=== PATIENT | male | born 1960 | race Two or more races ===

== ENCOUNTER 2024-08-05 10:55 | Inpatient (IN) | payer MEDICAID, SELFPAY ==
[2024-08-05] VITALS (12 sets, daily range): BP systolic 121–205; BP diastolic 66–96; PULSE 67–85; RESP 10–18; TEMP 36.9; O2SAT 95–100; BMI 39.0
--- NOTE | 2024-08-05 11:12 | EKG_ITS ---
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
--- NOTE | 2024-08-05 11:12 | XR_ITS ---
Examination: CT brain head without contrast. 2-D sagittal coronal reconstructions Date and time of exam:August 25, 2024 1137 hours INDICATIONS: Altered mental status onset slurred speech beginning 3 days ago CTDI: vol (mGy):52 DLP: (mGycm):1060 Technique: Multiple CT axial sections of the brain have been obtained, 5 mm slice thickness. Contrast has not been administered. 2-D sagittal, coronal reconstructions have been obtained Low dose protocols were performed. One or more of the following dose reduction techniques were used; automated exposure control, adjustment of the mA and/or KV according to patient size, use of iterative reconstruction technique. Findings: No significant ventricular enlargement. Subacute appearing versus old infarct in the left basal ganglia Intra-axial or extra-axial hemorrhage density is not seen. No mass effect or midline shift Basal cisterns are not remarkable. Fourth ventricle is midline. Cranial vault intact. Impression: Negative for acute hemorrhage, mass effect or midline shift Nonhemorrhagic subacute versus old infarct in the left basal ganglia, clinical correlation advised, consider brain MRI follow-up stroke protocol
--- NOTE | 2024-08-05 11:12 | XR_ITS ---
Examination: AP chest single view TECHNIQUE: Supine AP portable chest single view Exam date and time: August 05, 2024 1128 hours INDICATIONS: Onset shortness of breath today FINDINGS: No significant cardiac enlargement No pneumonia or pulmonary edema The osseous structures are intact IMPRESSION: No active disease
[2024-08-05 11:34] LABS: Lactate (Lactic Acid) 1.8 mMol/L (0.4-2.0)
[2024-08-05 11:37] LABS: Basophils % (Auto) 0 % (0-2.5); Eosinophils # (Auto) 0.1 Thou/mm3 (0.0-0.5); Eosinophils % (Auto) 0 % (0-10); Hematocrit 34.1 % (41.0-53.0); Immature Granulocytes % (Auto) 1 % (0-0); Immature Granulocytes Auto 0.07 Thou/mm3 (0.00-0.00); Lymphocytes # (Auto) 1.4 Thou/mm3 (1.0-4.8); Lymphocytes % (Auto) 11 % (10-50); Mean Corpuscular HGB Conc 35.2 g/dl (31.0-37.0); Mean Corpuscular Hemoglobin 30.5 pg (25.0-35.0); Mean Corpuscular Volume 87 fL (80-100); Monocytes # (Auto) 0.6 Thou/mm3 (0.0-0.8); Monocytes % (Auto) 5 % (0-12); Neutrophils # (Auto) 10.3 Thou/mm3 (1.8-7.7); Neutrophils % (Auto) 83 % (37-80); Nucleated Red Blood Cell % 0 /100 WBC (0); Platelet Count 263 Thou/mm3 (140-440); RDW Standard Deviation 36.5 fL (35.1-43.9); Red Blood Count 3.94 Miln/mm3 (4.50-5.90); White Blood Count 12.4 Thou/mm3 (3.8-10.6)
[2024-08-05 11:57] LABS: Ammonia < 10 uMol/L (11-32)
[2024-08-05 12:05] LABS: Alanine Aminotransferase 8 U/L (10-49); Albumin, Serum 3.6 gm/dL (3.4-4.8); Albumin/Globulin Ratio 1.4 (1.2-2.2); Alkaline Phosphatase 59 U/L (46-116); Anion Gap 10 (7-16); Aspartate Amino Transferase 15 U/L (0-34); BUN/Creatinine Ratio 13 Ratio (12-20); Bilirubin,Total 0.6 mg/dL (0.3-1.2); Blood Urea Nitrogen 45 mg/dL (9-23); Calcium 8.5 mg/dL (8.3-10.6); Calcium (Corrected) 8.8 mg/dL (8.5-10.1); Carbon Dioxide 24.3 mMol/L (20.0-31.0); Chloride 104 mMol/L (98-107); Creatinine (Component) 3.4 mg/dL (0.6-1.3); Estimated Creatinine Clearance 25.9 mL/min (>60); Globulin 2.5 gm/dL (2.3-3.5); Glucose 192 mg/dL (74-106); Osmolality,Calculated 292 (275-295); Potassium 4.4 mMol/L (3.4-5.1); Procalcitonin 0.14 ng/ml (0.0-0.49); Sodium 138 mMol/L (136-145); Total Protein 6.1 gm/dL (5.7-8.2); Troponin I 0.042 ng/mL (0.0-0.045); eGFR 19 See Note
--- NOTE | 2024-08-05 14:56 | EDNOTE_ITS ---
Altered Mental Status RME/HPI General Chief Complaint: Altered Mental Status Stated Complaint: ALTERED AND BLOOD IN URINE Time Seen by Provider: 08/05/24 12:13 Arrival date/time: 08/05/24 10:55 RME / HPI RME / HPI narrative: 63 year old male presents to the ED brought in by family for evaluation of altered mental status. Family report the patient lives with a roommate in [place] and were called several days ago stating the patient was not wanting to eat and spending the majority of the day in bed. State they went to pick him up 2 days ago and have noticed he is not acting his usual self. Family report the patient is disoriented and speech is slurred. Additionally report patients urine appears very dark orange/red. While in the ED patient has no complaints. He denies any fevers, chills, sweats, headache, chest pain, cough, shortness of breath, abdominal pain, nausea, vomiting, diarrhea, constipation, dysuria, urinary frequency, or blood in urine. Related Data Allergies Allergy/AdvReac Type Severity Reaction Status Date / Time No Known Allergies Allergy Verified 08/05/24 10:58 Review of Systems Review of Systems Narrative Review of Systems: Gen: No fever, no chills, no weight loss EYES: No discharge, no visual changes, no pain HEENT: No ear pain, no congestion, no sore throat PULM: no shortness of breath, no cough, no congestion CV: No chest pain, no dyspnea on exertion, no palpitations, no chest tightness GI: No nausea, no vomiting, no diarrhea, no pain, no constipation : No frequency, no urgency,? no dysuria, +per family blood in urine Musc/skel: No joint pain, no back pain Skin: No rash, no ecchymosis, no lesions Neuro: No weakness, no headache, +per family patient is disoriented with change in speech Past Medical History Social History SMOKING STATUS: Never smoker ED Exam Narrative Physical exam: GENERAL APPEARANCE: AxOx4, no obvious distress, nontoxic appearing HEENT: NC, AT. MMM. EOMI, clear conjunctiva, oropharynx clear. NECK: Supple without lymphadenopathy. No stiffness or restricted ROM. HEART: Normal rate and regular rhythm, normal S1/S1, no m/r/g LUNGS: CTAB, moving air well. No crackles or wheezes are heard. ABDOMEN: Soft, mild upper quadrant tenderness, he had a marked paroxysm of hiccups after the palpation lasting approximately 10 minutes and resolving spontaneously, nondistended with good bowel sounds heard. BACK: No midline C/T/L spine pain or deformity, No CVAT, no obvious deformity. EXTREMITIES: Without cyanosis, clubbing or edema. MUSCULOSKELETAL: FROM of all major joints, no chest tenderness NEUROLOGICAL: Grossly nonfocal. Alert and oriented, moving all 4 extremities. CN not formally tested but appear grossly intact. Skin: Warm and dry without any rash. Course Quality Measures none Orders Category Date Time Status Bedside COVID-19 Antigen Test NOW Care 08/05/24 11:12 Active Bedside Influenza A&B Antigen Test NOW Care 08/05/24 11:[address] Screening NOW Care 08/05/24 15:53 Completed Sorting Supervisor NOW Care 08/05/24 11:12 Active EKG (ED ONLY) *Do not use* NOW Care 08/05/24 11:12 Completed Insert IV NOW Care 08/05/24 11:[address] chest abdomen pelvis wo Stat Exams 08/05/24 15:[address] head/brain wo con Stat Exams 08/05/24 11:12 Completed EKG (ED Only) Stat Exams 08/05/24 11:12 Draft XR chest 1V portable Stat Exams 08/05/24 11:12 Completed Ammonia Stat Lab 08/05/24 11:21 Completed Blood Culture (Lab) Stat Lab 08/05/24 11:26 Received CBC Stat Lab 08/05/24 11:21 Completed Comprehensive Metabolic Panel Stat Lab 08/05/24 11:21 Completed Lactate (Lactic Acid) Stat Lab 08/05/24 11:21 Completed Procalcitonin Stat Lab 08/05/24 11:21 Completed Troponin I Stat Lab 08/05/24 11:21 Completed Urinalysis Stat Lab 08/05/24 15:15 Completed Urine Culture Stat Lab 08/05/24 15:15 Received Vital Signs Vital signs: Vital Signs Temperature 98.4 F 08/05/24 11:02 Pulse Rate 85 08/05/24 11:02 Respiratory Rate 18 08/05/24 11:02 Blood Pressure 121/66 08/05/24 11:02 Pulse Oximetry (%) 99 08/05/24 11:02 Oxygen Delivery Method Room Air 02/04/25 11:02 Pulse ox is 99% on room air which is adequate. Altered Mental Status MDM Narrative MDM Narrative:: 63-year-old male who has none specific altered mental status of unknown duration. He normally lives in [place] where roommate had contacted family members here in [place] about abnormal motor behavior. They brought him up here noticing that he has been weak, confused, and unable to answer questions fully. He was last visiting his family here in [place] around the holiday season where he was active, walking independently, and conversing normally. The only 2 symptoms noted by the family members are recurrent hiccups since they brought him back from [place] and may be some blood in the urine . There does not appear to be any generalized infectious symptoms. Patient does not have any focal complaints however I believe this is part of the confusion that is of concern. As a result further diagnostics were sent including basic labs, head CT, and viral panels which all returned within normal limits except for a mild leukocytosis at 12,000. Chest x-ray on my interpretation shows no acute cardiopulmonary process, no cardiomegaly, no bony abnormalities, I reviewed the radiology interpretation and agree. As patient does have some mild upper abdominal tenderness we do not not have a very clear sense as to why he would be altered, a leukocytosis of 12,000 is nonspecific, however CT of the chest abdomen pelvis has been sent to assess for any upper abdominal pathology that could be related to his physical exam and recurrent hiccups. Case was signed out to the oncoming provider pending CT results and final disposition. Ronit Galeas, am scribing for and in the presence of Dr. Uriostegui. Patient data External records reviewed:: [facility] previous records (Per EMR, no previous visits for review) Clinical information provided by:: patient Social determinants that could affect healthcare access:: none Patient has the following chronic illnesses:: Hypertension, diabetes How is presenting disease/condition affected by chronic disease/condition?: exa cerbated by Evaluation data The following diagnostics were reviewed and interpreted by me:: lab results, radiology exam(s) and EKG tracing(s) (Sinsu rhythm, rate 71, normal axis, normal intervals, no acute ST or T-wave changes, no STEMI ) Lab and/or radiology exams considered but not ordered:: None Interpretation Summary: Ordering Physician: Loida MORA)Jadiel NP Date of Service: 08/05/24 Procedure(s): XR chest 1V portable Accession Number(s): [id number] cc: Loida MORA),Jadiel FORD; Minesh Cabral MD~ Examination: AP chest single view TECHNIQUE: Supine AP portable chest single view Exam date and time: August 05, 2024 1128 hours INDICATIONS: Onset shortness of breath today FINDINGS: No significant cardiac enlargement No pneumonia or pulmonary edema The osseous structures are intact IMPRESSION: No active disease Dictated By:Minesh Cabral MD Signed By:<Electronically signed by Minesh Cabral MD in OV>08/05/24 1203 Ordering Physician: Jadiel Mariscal NP, NP Date of Service: 08/05/24 Procedure(s): CT head/brain wo con Accession Number(s): [id number] cc: Loida MORA)Jadiel NP; Minesh Cabral MD~ Examination: CT brain head without contrast. 2-D sagittal coronal reconstructions Date and time of exam:August 25, 2024 1137 hours INDICATIONS: Altered mental status onset slurred speech beginning 3 days ago CTDI: vol (mGy):52 DLP: (mGycm):1060 Technique: Multiple CT axial sections of the brain have been obtained, 5 mm slice thickness. Contrast has not been administered. 2-D sagittal, coronal reconstructions have been obtained Low dose protocols were performed. One or more of the following dose reduction techniques were used; automated exposure control, adjustment of the mA and/or KV according to patient size, use of iterative reconstruction technique. Findings: No significant ventricular enlargement. Subacute appearing versus old infarct in the left basal ganglia Intra-axial or extra-axial hemorrhage density is not seen. No mass effect or midline shift Basal cisterns are not remarkable. Fourth ventricle is midline. Cranial vault intact. Impression: Negative for acute hemorrhage, mass effect or midline shift Nonhemorrhagic subacute versus old infarct in the left basal ganglia, clinical correlation advised, consider brain MRI follow-up stroke protocol Dictated By:Minesh Cabral MD Signed By:<Electronically signed by Minesh Cabral MD in OV>08/05/24 1202 Medications / Prescriptions Medications or Prescriptions considered but not ordered:: None Medication administrations:: Workup pending Consultations Consultation(s) initiated? (list below): No Diagnosis Differential diagnosis altered mental status: alcoholic intoxication, altered mental status, dementia, hypoglycemia, hyponatremia, subarachnoid hemorrhage and sepsis Most likely diagnosis given after review of the tests above:: Workup pending Admission Indicated Admission indicated?: not indicated (Workup pending) Admission Request Was there a request for admission?: No Disposition Plan Disposition Plan: other (specify) (Signed out to oncoming provider pending CT results and final disposition) Discharge Plan Prescriptions/Referrals Referrals: No Primary/Family,Physician [Primary Care Provider] - In 1 week Problem List Clinical Impression: Altered mental status, Leukocytosis Patient/Caregiver Discharge Instructions Print Language: Ivorian
[2024-08-05 15:19] LABS: Collection Type, Urine Clean Catch
[2024-08-05 15:27] LABS: Bacteria,Urine Rare; Bilirubin,Urine Negative (Negative); Blood,Urine 1+ (Negative); Clarity,Urine Clear (Clear/Hazy); Color,Urine Lt-Yellow (Lt Yel-Yel); Glucose, Urine 3+ (Negative); Hyaline Casts,Urine < 1 /hpf (0-1); Ketones,Urine Negative (Negative); Leukocyte Esterase,Urine Negative (Negative); Nitrite,Urine Negative (Negative); Protein,Urine 3+ (Neg - Trace); RBC,Urine 1 /hpf (0-3); Specific Gravity,Urine 1.013 (1.001-1.035); Squamous Epithelial Cell,Urine < 1 /hpf (0-5); Urobilinogen,Urine Negative mg/dL (0.0-1.0); WBC,Urine 1 /hpf (0-5)
--- NOTE | 2024-08-05 15:55 | XR_ITS ---
Examination: CT chest, without intravenous contrast. CT abdomen, without intravenous contrast. CT pelvis, without intravenous contrast. 2-D sagittal and coronal reconstructions. 3-D reconstructions. Date and time of exam:August 05, 2024 1620 hours INDICATIONS: Upper abdominal pain left upper abdominal pain today CTDI vol (mgy) 7.56 DLP (MGycm)603 Technique: Multiple CT images, 3.0 mm slice thickness, obtained chest, abdomen, pelvis, with the high-resolution 64 slice scanner.. Sagittal and coronal 2-D reconstructions are obtained. 3-D reconstructions Low dose protocols were performed. One or more of the following dose reduction techniques were used; automated exposure control, adjustment of the mA and/or KV according to patient size, use of iterative reconstruction technique. Findings: No thoracic aortic aneurysmal dilatation Pulmonary artery segments are not enlarged Heavy calcification left anterior descending coronary artery. No paratracheal tracheobronchial or bronchopulmonary adenopathy No pneumonia pulmonary edema or pleural disease No visualized liver or splenic lesion Cholelithiasis Pancreatic calcifications No adrenal mass Perinephric stranding 1 to 2 mm right renal calculi No hydronephrosis or ureteral calculi Aorta normal size Normal appendix No bowel obstruction Colonic diverticulosis, no diverticulitis Transverse prostate dimension 5.2 cm Urinary bladder wall thickening up to 5 mm Fat-containing left inguinal hernia Moderate osteopenia IMPRESSION: Heavy calcification left anterior descending coronary artery No pneumonia, pulmonary edema or pleural disease. Cholelithiasis, tiny gallstones, recommend hepatobiliary sonography follow-up Multiple pancreatic calcifications consistent with prior episodes of acute pancreatitis Nonobstructing right renal calculi Perinephric stranding, consider urinary tract infection Normal appendix No diverticulitis Moderate prostatomegaly Urinary bladder wall thickening up to 5 mm, consider cystitis
--- NOTE | 2024-08-05 18:46 | EDNOTE_ITS ---
Emergency Room Addendum <Fausto Zaragoza - Last Filed: 08/05/24 21:57> Addendum Narrative: 1800: Care assumed from Dr. Uriostegui, the previous shift emergency physician. Past medical, surgical, social and family history reviewed. Vitals and home medications reviewed. I will assume the care of the patient at this time, pending CT results and final disposition. Please refer to the emergency department record for initial H&P and ED course. Patient is awake and in no acute distress. He is not having a headache at this time. Physical exam by me shows patient under no acute distress at this time. Vitals: Reviewed and he is slightly hypertensive at 201 systolic. Lungs; clear Neuro: Moving all extremities. 2138 Teleneurology is present at the bedside for consultation. Please consultation below and recommendations. Tele Neuro Consultation Consultation Date: 08/05/24 Stat Consult Diagnosis:?I63.89 - Cerebrovascular accident (CVA) due to other mechanism ([facility]) Impression: Acute Confusion with Possible Stroke: #Admission and Initial Workup: Admit patient for comprehensive evaluation due to acute confusion and slurred speech observed since Sunday, alongside CT head findings suggestive of a recent or older cerebrovascular event. Proceed with MRI of the brain following stroke protocol and MRA of the head and neck without contrast to assess cerebrovascular status. Conduct laboratory tests including CBC, CMP, UA, TSH, LDL, and A1C to evaluate for potential contributing factors. #Management and Monitoring: Initiate aspirin therapy with a loading dose of 325mg, transitioning to 81mg daily for secondary stroke prevention. Continue current statin therapy as part of secondary stroke prevention strategy. Schedule a 2D echocardiogram to investigate cardiac sources of embolism. Refer for PT/OT/NURSE SPECIAL evaluation to assess rehabilitation potential and needs. #Supportive Care: Ensure maintenance of normal blood pressure, euglycemia, and euthermia to support optimal neurological recovery and prevent further injury. #Clinical Observations: Neurological examination revealed intact speech, orientation, facial symmetry, and limb strength, with no evidence of weakness or facial asymmetry, indicating preserved neurological functions despite acute presentation. The patient's medical history of hypertension, hyperlipidemia, and diabetes is noted, contributing to the suspicion of an acute cerebrovascular event Advanced Imaging: Advanced Imaging Deferred because: Does not meet criteria due to being out of the 24-hour window for thrombectomy Radiology Data I personally reviewed the radiology data and agree with the radiologist's interpretation. CT chest, without intravenous contrast. CT abdomen, without intravenous contrast. CT pelvis, without intravenous contrast. Date and time of exam:August 05, 2024 1620 hours INDICATIONS: Upper abdominal pain left upper abdominal pain today Findings: No thoracic aortic aneurysmal dilatation Pulmonary artery segments are not enlarged Heavy calcification left anterior descending coronary artery. No paratracheal tracheobronchial or bronchopulmonary adenopathy No pneumonia pulmonary edema or pleural disease No visualized liver or splenic lesion Cholelithiasis Pancreatic calcifications No adrenal mass Perinephric stranding 1 to 2 mm right renal calculi No hydronephrosis or ureteral calculi Aorta normal size Normal appendix No bowel obstruction Colonic diverticulosis, no diverticulitis Transverse prostate dimension 5.2 cm Urinary bladder wall thickening up to 5 mm Fat-containing left inguinal hernia Moderate osteopenia IMPRESSION: Heavy calcification left anterior descending coronary artery No pneumonia, pulmonary edema or pleural disease. Cholelithiasis, tiny gallstones, recommend hepatobiliary sonography follow-up Multiple pancreatic calcifications consistent with prior episodes of acute pancreatitis Nonobstructing right renal calculi Perinephric stranding, consider urinary tract infection Normal appendix No diverticulitis Moderate prostatomegaly Urinary bladder wall thickening up to 5 mm, consider cystitis Dictated By: Minesh Cabral MD <Erin Mcneil MD - Last Filed: 08/06/24 00:04> Addendum Narrative: 1800: Care assumed from Dr. Uriostegui, the previous shift emergency physician. Past medical, surgical, social and family history reviewed. Vitals and home medications reviewed. I will assume the care of the patient at this time, pending CT results and final disposition. Please refer to the emergency department record for initial H&P and ED course. Patient is awake and in no acute distress. He is not having a headache at this time. Physical exam by me shows patient under no acute distress at this time. Vitals: Reviewed and he is slightly hypertensive at 201 systolic. Lungs; clear Neuro: Moving all extremities. 2138: Teleneurology is present at the bedside for consultation. Please consultation below and recommendations. 6: Discussed case with [the resident physician, attending Dr. Ortiz] from Hospitalist service regarding admission. Discussed patients ED course, exam findings, labs, and radiology results. The Hospitalist [agrees] to accept the patient for admission. Tele Neuro Consultation Consultation Date: 08/05/24 Stat Consult Diagnosis:?I63.89 - Cerebrovascular accident (CVA) due to other mechanism ([facility]) Impression: Acute Confusion with Possible Stroke: #Admission and Initial Workup: Admit patient for comprehensive evaluation due to acute confusion and slurred speech observed since Sunday, alongside CT head findings suggestive of a recent or older cerebrovascular event. Proceed with MRI of the brain following stroke protocol and MRA of the head and neck without contrast to assess cerebrovascular status. Conduct laboratory tests including CBC, CMP, UA, TSH, LDL, and A1C to evaluate for potential contributing factors. #Management and Monitoring: Initiate aspirin therapy with a loading dose of 325mg, transitioning to 81mg daily for secondary stroke prevention. Continue current statin therapy as part of secondary stroke prevention strategy. Schedule a 2D echocardiogram to investigate cardiac sources of embolism. Refer for PT/OT/NURSE SPECIAL evaluation to assess rehabilitation potential and needs. #Supportive Care: Ensure maintenance of normal blood pressure, euglycemia, and euthermia to support optimal neurological recovery and prevent further injury. #Clinical Observations: Neurological examination revealed intact speech, orientation, facial symmetry, and limb strength, with no evidence of weakness or facial asymmetry, indicating preserved neurological functions despite acute presentation. The patient's medical history of hypertension, hyperlipidemia, and diabetes is noted, contributing to the suspicion of an acute cerebrovascular event Advanced Imaging: Advanced Imaging Deferred because: Does not meet criteria due to being out of the 24-hour window for thrombectomy Radiology Data I personally reviewed the radiology data and agree with the radiologist's interpretation. CT chest, without intravenous contrast. CT abdomen, without intravenous contrast. CT pelvis, without intravenous contrast. Date and time of exam:August 05, 2024 1620 hours INDICATIONS: Upper abdominal pain left upper abdominal pain today Findings: No thoracic aortic aneurysmal dilatation Pulmonary artery segments are not enlarged Heavy calcification left anterior descending coronary artery. No paratracheal tracheobronchial or bronchopulmonary adenopathy No pneumonia pulmonary edema or pleural disease No visualized liver or splenic lesion Cholelithiasis Pancreatic calcifications No adrenal mass Perinephric stranding 1 to 2 mm right renal calculi No hydronephrosis or ureteral calculi Aorta normal size Normal appendix No bowel obstruction Colonic diverticulosis, no diverticulitis Transverse prostate dimension 5.2 cm Urinary bladder wall thickening up to 5 mm Fat-containing left inguinal hernia Moderate osteopenia IMPRESSION: Heavy calcification left anterior descending coronary artery No pneumonia, pulmonary edema or pleural disease. Cholelithiasis, tiny gallstones, recommend hepatobiliary sonography follow-up Multiple pancreatic calcifications consistent with prior episodes of acute pancreatitis Nonobstructing right renal calculi Perinephric stranding, consider urinary tract infection Normal appendix No diverticulitis Moderate prostatomegaly Urinary bladder wall thickening up to 5 mm, consider cystitis Dictated By: Minesh Cabral MD Critical Care Time: 40 minutes The high probability of sudden, clinically significant deterioration in the patient?s condition required the highest level of my preparedness to intervene urgently. The services I provided to this patient were to treat and/or prevent clinically significant deterioration. Services included the following: chart data review, reviewing nursing notes and/or old charts, documentation time, oracle ebs consultant collaboration regarding findings and treatment options, medication orders and management, direct patient care, vital sign assessments and ordering, interpreting and reviewing diagnostic studies and lab tests. Aggregate critical care time includes only time during which I was engaged in work directly related to the patient?s care, as described above, whether at bedside or elsewhere in the Emergency Department. It did not include time spent performing other reported procedures or the services of residents, students, nurses or physician assistants. <Luann Porter - Last Filed: 08/06/24 00:01> Addendum Narrative: 1800: Care assumed from Dr. Uriostegui, the previous shift emergency physician. Past medical, surgical, social and family history reviewed. Vitals and home medications reviewed. I will assume the care of the patient at this time, pending CT results and final disposition. Please refer to the emergency department record for initial H&P and ED course. Patient is awake and in no acute distress. He is not having a headache at this time. Physical exam by me shows patient under no acute distress at this time. Vitals: Reviewed and he is slightly hypertensive at 201 systolic. Lungs; clear Neuro: Moving all extremities. 2138: Teleneurology is present at the bedside for consultation. Please consultation below and recommendations. 2355: Discussed case with [the resident physician, attending Dr. Ortiz] from Hospitalist service regarding admission. Discussed patients ED course, exam findings, labs, and radiology results. The Hospitalist [agrees] to accept the patient for admission. Tele Neuro Consultation Consultation Date: 08/05/24 Stat Consult Diagnosis:?I63.89 - Cerebrovascular accident (CVA) due to other mechanism ([facility]) Impression: Acute Confusion with Possible Stroke: #Admission and Initial Workup: Admit patient for comprehensive evaluation due to acute confusion and slurred speech observed since Sunday, alongside CT head findings suggestive of a recent or older cerebrovascular event. Proceed with MRI of the brain following stroke protocol and MRA of the head and neck without contrast to assess cerebrovascular status. Conduct laboratory tests including CBC, CMP, UA, TSH, LDL, and A1C to evaluate for potential contributing factors. #Management and Monitoring: Initiate aspirin therapy with a loading dose of 325mg, transitioning to 81mg daily for secondary stroke prevention. Continue current statin therapy as part of secondary stroke prevention strategy. Schedule a 2D echocardiogram to investigate cardiac sources of embolism. Refer for PT/OT/NURSE SPECIAL evaluation to assess rehabilitation potential and needs. #Supportive Care: Ensure maintenance of normal blood pressure, euglycemia, and euthermia to support optimal neurological recovery and prevent further injury. #Clinical Observations: Neurological examination revealed intact speech, orientation, facial symmetry, and limb strength, with no evidence of weakness or facial asymmetry, indicating preserved neurological functions despite acute presentation. The patient's medical history of hypertension, hyperlipidemia, and diabetes is noted, contributing to the suspicion of an acute cerebrovascular event Advanced Imaging: Advanced Imaging Deferred because: Does not meet criteria due to being out of the 24-hour window for thrombectomy Radiology Data I personally reviewed the radiology data and agree with the radiologist's interpretation. CT chest, without intravenous contrast. CT abdomen, without intravenous contrast. CT pelvis, without intravenous contrast. Date and time of exam:August 05, 2024 1620 hours INDICATIONS: Upper abdominal pain left upper abdominal pain today Findings: No thoracic aortic aneurysmal dilatation Pulmonary artery segments are not enlarged Heavy calcification left anterior descending coronary artery. No paratracheal tracheobronchial or bronchopulmonary adenopathy No pneumonia pulmonary edema or pleural disease No visualized liver or splenic lesion Cholelithiasis Pancreatic calcifications No adrenal mass Perinephric stranding 1 to 2 mm right renal calculi No hydronephrosis or ureteral calculi Aorta normal size Normal appendix No bowel obstruction Colonic diverticulosis, no diverticulitis Transverse prostate dimension 5.2 cm Urinary bladder wall thickening up to 5 mm Fat-containing left inguinal hernia Moderate osteopenia IMPRESSION: Heavy calcification left anterior descending coronary artery No pneumonia, pulmonary edema or pleural disease. Cholelithiasis, tiny gallstones, recommend hepatobiliary sonography follow-up Multiple pancreatic calcifications consistent with prior episodes of acute pancreatitis Nonobstructing right renal calculi Perinephric stranding, consider urinary tract infection Normal appendix No diverticulitis Moderate prostatomegaly Urinary bladder wall thickening up to 5 mm, consider cystitis Dictated By: Minesh Cabral MD Critical Care Time: 40 minutes The high probability of sudden, clinically significant deterioration in the patient?s condition required the highest level of my preparedness to intervene urgently. The services I provided to this patient were to treat and/or prevent clinically significant deterioration. Services included the following: chart data review, reviewing nursing notes and/or old charts, documentation time, oracle ebs consultant collaboration regarding findings and treatment options, medication orders and management, direct patient care, vital sign assessments and ordering, interpreting and reviewing diagnostic studies and lab tests. Aggregate critical care time includes only time during which I was engaged in work directly related to the patient?s care, as described above, whether at bedside or elsewhere in the Emergency Department. It did not include time spent performing other reported procedures or the services of residents, students, nurses or physician assistants. Attestation <Fausto Zaragoza - Last Filed: 08/05/24 21:57> Attestation Scribe Attestation: I, Nilsa Zaragoza, am scribing for and in the presence of Dr. Mcneil. Provider Notation: Although this document has been carefully reviewed, there may still be some phonetic and other typographical errors. These errors are purely grammatical due to imperfections in the software program and should not be construed in any way to compromise the substance of the patient's medical care during this visit.
--- NOTE | 2024-08-05 18:53 | XR_ITS ---
Examination: Abdomen sonogram, Limited Date and time of exam: August 05, 2024 at 2044 hours INDICATIONS: Right upper abdominal pain left upper abdominal pain today Technique: Real-time wood scale transabdominal sonographic images of the upper abdomen obtained. Findings: Possible gallbladder sludge ball No definite gallstones Gallbladder wall 0.4 cm no edema Common bile duct 0.5 cm Pancreatic head 2.5 cm Liver 13.5 cm no focal liver lesions Normal hepatopedal portal venous flow Patent IVC IMPRESSION: Suspicious for gallbladder sludge ball Negative for cholelithiasis, negative for cholecystitis
[2024-08-05] MEDS: hydrALAZINE INJ 20 MG/ML VIAL IV (19:11)
--- NOTE | 2024-08-05 19:17 | PC.NURSE ---
TELE NEURO CASE # [id number]
--- NOTE | 2024-08-05 19:58 | PC.NURSE ---
Pt awake, A&O x 3, PERRL, BERNSTEIN well, bilat hand resident assistant cna equal and strong. Speech slightly slurred but better then when he first came in per Yeny (niece) at bedside.
--- NOTE | 2024-08-05 21:30 | PC.NURSE ---
Tele nerologist Dr. Sebastien Hobson spoke and assessed pt, translated by Yeny tse) at bedside.
--- NOTE | 2024-08-05 21:50 | ESCONSULT_ITS ---
Tele Neuro Consultation Consultation Date 08/05/24 Most Recent Vital Signs Last Vital Signs Temp 98.5 F 08/05/24 19:29 Pulse 78 08/05/24 21:22 Resp 18 08/05/24 21:22 BP 156/70 H 08/05/24 21:22 Pulse Ox 100 08/05/24 21:22 O2 Del Method Room Air 08/05/24 21:22 Consultation Narrative [facility] TeleNeurology Consult Services Stat Consult Patient Name:???Adam Reddy Date of :???1960 Identification Number:??? Date of Service:???08/05/2024 19:16:37 Diagnosis:?I63.89 - Cerebrovascular accident (CVA) due to other mechanism ([facility]) Impression Acute Confusion with Possible Stroke: Admission and Initial Workup: Admit patient for comprehensive evaluation due to acute confusion and slurred speech observed since Sunday, alongside CT head findings suggestive of a recent or older cerebrovascular event. Proceed with MRI of the brain following stroke protocol and MRA of the head and neck without contrast to assess cerebrovascular status. Conduct laboratory tests including CBC, CMP, UA, TSH, LDL, and A1C to evaluate for potential contributing factors. Management and Monitoring: Initiate aspirin therapy with a loading dose of 325mg, transitioning to 81mg daily for secondary stroke prevention. Continue current statin therapy as part of secondary stroke prevention strategy. Schedule a 2D echocardiogram to investigate cardiac sources of embolism. Refer for PT/OT/SEMICONDUCTOR BONDER evaluation to assess rehabilitation potential and needs. Supportive Care: Ensure maintenance of normal blood pressure, euglycemia, and euthermia to support optimal neurological recovery and prevent further injury. Clinical Observations: Neurological examination revealed intact speech, orientation, facial symmetry, and limb strength, with no evidence of weakness or facial asymmetry, indicating preserved neurological functions despite acute presentation. The patient's medical history of hypertension, hyperlipidemia, and diabetes is noted, contributing to the suspicion of an acute cerebrovascular event. Recommendations: Our recommendations are outlined below. Advanced Imaging: Advanced Imaging Deferred because: Does not meet criteria due to being out of the 24-hour window for thrombectomy Metrics: Dispatch Time: 08/05/2024 19:16:37 Callback Response Time: 08/05/2024 19:21:07 Primary Provider Notified of Diagnostic Impression and Management Plan on: 08/05/2024 21:49:59 CT HEAD: As Per Radiologist CT Head Showed No Acute Hemorrhage or Acute Core Infarct Chief Complaint: Word finding difficutly, slurred speech and AMS History of Present Illness:Patient is a 63 year old Male. Patient presents with chief complaints of confusion and slurred speech. The confusion has been ongoing since Sunday (08/04). Initially, he had difficulty finding words, but his speech has since improved. There was no reported facial asymmetry, drooping, or weakness. The patient's medical history is significant for hypertension, hypercholesterolemia, and diabetes. There is no known history of stroke. Upon review of systems, the patient demonstrates neurological symptoms including confusion and slurred speech, with the confusion persisting since Sunday. The patient initially experienced difficulty finding words, but this has shown improvement. Patient had difficulty remembering family members. On assessment, no focal neuroligical deficits appreciated. Past Medical History: ?Hypertension ?Diabetes Mellitus ?Hyperlipidemia Other PMH:? CKD Medications: No Anticoagulant use? No Antiplatelet use Reviewed EMR for current medications Allergies:? Reviewed Social History: Drug Use: No Family History: There is no family history of premature cerebrovascular disease pertinent to this consultation ROS : 14 Points Review of Systems was performed and was negative except mentioned in HPI. Past Surgical History: There Is No Surgical History Contributory To Today?s Visit Examination: BP(156/70),?Pulse(78),?Blood Glucose(195) 1A: Level of Consciousness - Alert; keenly responsive?+ 0 1B: Ask Month and Age - Both Questions Right?+ 0 1C: Blink Eyes & Squeeze Hands - Performs Both Tasks?+ 0 2: Test Horizontal Extraocular Movements - Normal?+ 0 3: Test Visual Rod - No Visual Loss?+ 0 4: Test Facial Palsy (Use Grimace if Obtunded) - Normal symmetry?+ 0 5A: Test Left Arm Motor Drift - No Drift for 10 Seconds?+ 0 5B: Test Right Arm Motor Drift - No Drift for 10 Seconds?+ 0 6A: Test Left Leg Motor Drift - No Drift for 5 Seconds?+ 0 6B: Test Right Leg Motor Drift - No Drift for 5 Seconds?+ 0 7: Test Limb Ataxia (FNF/Heel-Chavez) - No Ataxia?+ 0 8: Test Sensation - Normal; No sensory loss?+ 0 9: Test Language/Aphasia - Normal; No aphasia?+ 0 10: Test Dysarthria - Normal?+ 0 11: Test Extinction/Inattention - No abnormality?+ 0 NIHSS Score:?0 Spoke with :?Dr. Mcneil This consult was conducted in real time using interactive audio and video technology. Patient was informed of the technology being used for this visit and agreed to proceed. Patient located in hospital and provider located at home/office setting. Patient is being evaluated for possible acute neurologic impairment and high probability of imminent or life - threatening deterioration.I spent total of 35 minutes providing care to this patient, including time for face to face visit via telemedicine, review of medical records, imaging studies and discussion of findings with providers, the patient and / or family. Dr Sebastien Hobson [facility] For Inpatient follow-up with [facility] physician please call [facility] at . As we are not an outpatient service for any post hospital discharge needs please contact the hospital for assistance. If you have any questions for the [facility] physicians or need to reconsult for clinical or diagnostic changes please contact us via [facility] at .
[2024-08-06] VITALS (12 sets, daily range): BP systolic 144–201; BP diastolic 63–97; PULSE 60–75; RESP 12–19; TEMP 36.1–36.8; O2SAT 94–98; BMI 39.0
--- NOTE | 2024-08-06 | XR_ITS ---
Examinations: MRI Brain without intravenous contrast. MRA brain without intravenous contrast. MRA carotids without intravenous contrast 3-D vascular reconstructions Date and time of exam: August 06, 2024 0927 hours INDICATIONS: Altered mental status disorientation this week Technique: Multiple axial and sagittal images of the brain have been obtained MRA brain carotid images without contrast obtained, including 3-D postprocessing, vascular maximum intensity projection images Findings: [place] is not enlarged. The optic chiasm and infundibular stalk are not remarkable. Prepontine and interpeduncular cisterns are not enlarged. No localized enlargement of the medulla or meenakshi. Fourth ventricle and cerebellar tonsils normal in position. Subacute hemorrhage is not seen. Fourth ventricle is midline. Mass in the cerebellopontine angle region is not evident. 7th and 8th nerve complexes exhibits symmetry. Globes are symmetrical with no retro-orbital mass. Increased white matter signal prominent Diffusion-weighted images demonstrate large focus restricted diffusion left basal ganglia left caudate nucleus, 36 mm Mass-effect upon the ventricular system is not identified. MRA carotid images degraded by patient motion. MRA brain images high-grade stenosis P2 segment right posterior cerebral artery P1 P2 segment left posterior cerebral artery Impression: Negative for acute hemorrhage mass effect or midline shift Large acute infarct left basal ganglia/caudate nucleus
--- NOTE | 2024-08-06 00:06 | PC.NURSE ---
Hospitalist in room seeing ptYeny (niece) at bedside.
[2024-08-06] MEDS: Aspirin 325 MG TABLET PO (00:09)
--- NOTE | 2024-08-06 00:34 | XR_ITS ---
Examination: Knee, right , 3 views Technique: Knee AP, lateral, oblique 3 views Date and time of exam: August 06, 2024 0050 hours INDICATIONS: Patient fell today with injury to the knee, knee pain. FINDINGS: Moderate osteopenia Moderate to advanced tricompartment osteoarthritis Small knee effusion No acute fracture No dislocation IMPRESSION: No acute fracture
--- NOTE | 2024-08-06 00:36 | ECHO_ITS ---
Transthoracic Echo Report Ht (in): 66 Wt (lb): 242 Exam Location: Echo Lab Status: Inpatient Blocker And Polisher: Sabrina Yee Indications: Procedure Performed: BP: 162 / 82 HR: 65 Technical Quality: Technically difficult study MEASUREMENTS (Male / Female) Normal Values 2D ECHO LV Diastolic Diameter PLAX 6.0 cm 4.2 - 5.9 / 3.9 - 5.3 cm LV Systolic Diameter PLAX 4.6 cm IVS Diastolic Thickness 1.2 cm 0.6 - 1.0 / 0.6 - 0.9 cm LVPW Diastolic Thickness 1.2 cm 0.6 - 1.0 / 0.6 - 0.9 cm LV Relative Wall Thickness 0.4 LVOT Diameter 2.0 cm Aortic Root Diameter 3.0 cm LV Ejection Fraction MOD BP 38.9 % >= 55 % LV Cardiac Index MOD BP 2108.1 cm?/min?m? LV Ejection Fraction MOD 4C 39.6 % LV Cardiac Index MOD 4C 1813.0 cm?/min?m? LV Ejection Fraction 4C AL 39.5 % LV Cardiac Index 4C AL 1916.4 cm?/min?m? LV Ejection Fraction MOD 2C 37.3 % LV Cardiac Index MOD 2C 2023.8 cm?/min?m? LV Ejection Fraction 2C AL 37.2 % LV Cardiac Index 2C AL 2115.0 cm?/min?m? LA Volume Index 30.4 cm?/m? 16 - 28 cm?/m? M-MODE Aortic Root Diameter MM 2.9 cm LA Systolic Diameter MM 4.3 cm LA Ao Ratio MM 1.5 AV Cusp Separation MM 2.3 cm DOPPLER AV Peak Velocity 197.0 cm/s AV Peak Gradient 15.5 mmHg AV Mean Gradient 8.0 mmHg AV Velocity Time Integral 44.7 cm LVOT Peak Velocity 136.0 cm/s LVOT Peak Gradient 7.4 mmHg LVOT Velocity Time Integral 32.8 cm LVOT Cardiac Index 2896.3 cm?/min?m? AV Area Cont Eq vti 2.3 cm? AV Area Cont Eq pk 2.2 cm? MV Area PHT 2.6 cm? Mitral E Point Velocity 81.0 cm/s Mitral A Point Velocity 84.9 cm/s Mitral E to A Ratio 1.0 LV E' Lateral Velocity 5.9 cm/s Mitral E to LV E' Lateral Ratio 13.8 LV E' Septal Velocity 5.2 cm/s Mitral E to LV E' Septal Ratio 15.5 PV Peak Velocity 144.0 cm/s PV Peak Gradient 8.3 mmHg FINDINGS Left Ventricle Normal left ventricular size and systolic function with no obvious regional wall motion abnormalities. Mild LVH. Normal left ventricular diastolic filling pattern for age. The ejection fraction is visually estimated at 45- 50%. Hypokinetic basal inferior wall motion. Right Ventricle The right ventricle is normal in size and systolic function. Left Atrium The left atrium is normal by two-dimensional, color flow and Doppler imaging with no structural abnormalities, no thrombus formation present. Right Atrium The right atrium is normal by two-dimensional imaging, color flow and Doppler imaging with no structural abnormalities, no thrombus formation present. Atrial Septum The interatrial septum appears normal with no evidence of a shunt. Aorta The aorta is normal by two-dimensional, color flow and Doppler interrogation. Mitral Valve The mitral valve is normal by two-dimensional, color flow and Doppler interrogation. There is trace mitral valve regurgitation, stenosis or prolapse. Aortic Valve The aortic valve is trileaflet and normal by two-dimensional, color flow and Doppler interrogation. There is no significant aortic valve regurgitation. Tricuspid Valve The tricuspid valve is normal by two-dimensional, color flow and Doppler interrogation. There is no significant tricuspid valve regurgitation. Pulmonic Valve The pulmonic valve is not well visualized. There is no significant pulmonic valve regurgitation. Vessels Inferior vena cava not well visualized. Pericardium The pericardium is normal by two-dimensional imaging. There is no significant pericardial effusion. CONCLUSIONS Indication: CHF stroke R/O bubble study Negative bubble study Normal LV size. Mild LV. Estimated EF 45-50%. Hypokinetic basal inferior wall motion. RV is normal in size and systolic function. Trace MR. IVC not well seen. Aleksander Fitzgerald (Electronically Signed) Final Date: 08 August 2024 10:12
--- NOTE | 2024-08-06 00:42 | ESHP_ITS ---
Documentation for date of: 08/06/24 HPI History of Present Illness History of present illness: This is 63-year-old, Adam, with PMHx of HTN, HLD, T2DM, CKD stage IV, presenting with altered mental status. Patient is French-speaking. Encounter was interpreted by niece at bedside. Adam is single, lives alone in life. His sister has been unable to get a hold of him for the last 2 weeks. Her son-in-law drove down to Adam's apartment and found him to be slightly confused. They brought him to [place] to care for him, but notices speech has difficulty forming sentences, answering questions and unsteady when he walks. Per patient, 2 weeks ago, on Sunday, he had a ground-level fall that evening and landed on his right knee. He went to sleep and woke up the next day feeling unlike himself. He felt dizzy when he walking, associated with weakness on right side. He hasn't been in contact with anybody over the last 2 weeks, thus there was nobody to witness speech abnormalities. However per niece at bedside, his speech is completely abnormal. He has trouble finding sentences, recalling events, and forming speech. He states he has subjective fever and chills but no night sweats. Additionally, he endorses occasional palpitations in his chest but no chest pain or shortness of breath. He also denies head trauma, headaches, visual or auditory abnormalities, swallowing difficulty, abdominal symptoms such as pain or N/V/D/C, or urinary symptoms such as frequency or urgency or dysuria. Teleneurology was consulted who recommended admission, ASPIRIN, and admission for further workup. ED COURSE: On exam, appears comfortable, slightly slurred speech, difficulty finding words and forming sentences. He has difficulty with smiling and opening his mouth wide. There was obvious no unilateral weakness or loss of sensation. Afebrile, BP 121/66, HR 18, satting 99% on room air. CBC significant for WBC 12.4, Hgb 12.0. Chemistry significant for CR 3.4, GFR 19, GLUCOSE 192. UA does not suggest UTI. Radiographic findings: * EKG showed sinus rhythm with short DC, no acute ST changes. * Head CT showed nonhemorrhagic, subacute versus old infarct of left basal ganglia. No acute hemorrhage, mass or midline shift. * CXR without active disease. * CT CAP showed calcification of left ear descending artery, cholelithiasis, tiny gallstones, multiple pancreatic calcification, nonobstructive renal calculi, perinephric stranding, moderate #2 megaly, urinary bladder wall thickening up to 5 mm, possible cystitis. PMHx: HTN, HLD, T2DM, CKD stage IV PSHx: None MEDS: FUROSEMIDE 40 mg BID, HYDRALAZINE 25 mg BID, GLIPIZIDE 5 mg, ATORVASTATIN 20 mg, CODEINE once daily for left knee pain ALLERGIES: NKA SH: Occasional alcohol use, no tobacco or marijuana or drug use. Exam Vital Signs Temp Pulse Resp BP Pulse Ox O2 Del Method 98.5 F 71 16 144/82 H 95 Room Air 08/05/24 19:29 08/05/24 23:01 08/05/24 23:01 08/05/24 23:01 08/05/24 23:01 08/05/24 23:01 Narrative Exam GENERAL * Normal appearing male, no apparent distress HEENT * NCAT.?VERONICA. Oral mucosa is moist. Patent Nares NECK * Supple, nontender, no thyromegaly, no meningismus, no JVD, no step offs CHEST * RRR, no m/g/r * CTAB, no w/r/r. Symmetrical chest rise. No intercostal subcostal retraction * Atraumatic, nontender, no crepitus, symmetrical expansion. ABDOMEN * Soft, flat, nontender. No guarding/rebound tenderness/masses. * Bowel sounds presents EXTREMITIES * Nontender, no cyanosis, no edema * No edema/cyanosis.? * Right knee redness without obvious swelling, warmth or bony deformities. Of motion intact but painful. SKIN * Warm and dry, no jaundice/rashes. NEUROMUSCULAR * No lumbar or midline, no CVA, no paraspinal muscle spasm or tenderness. * Moves all 4 extremities well, with full ROM and good CSM. * ENRIQUEZ x4, CN II-XII grossly intact except for CN VII findings as below. * Slurred speech, dysarthria * Difficulty opening mouth wide, making a smile. * Facial sensation intact and symmetrical bilaterally. * [id number] test intact. * Motor and sensation intact and symmetrical in all extremities PSYCHIATRY * Normal mood and affect, cooperative, no SI or HI or hallucinations. Results: Labs 08/05/24 11:21 08/05/24 11:21 Labs: Short CBC 08/05/24 Range/Units 11:21 WBC 12.4 H (3.8-10.6) Thou/mm3 Hgb 12.0 L (13.5-16.0) g/dL Hct 34.1 L (41.0-53.0) % Plt Count 263 (140-440) Thou/mm3 BMP 08/05/24 11:21 Sodium 138 Potassium 4.4 Chloride 104 Carbon Dioxide 24.3 BUN 45 H Creatinine 3.4 H Glucose 192 H Calcium 8.5 Cardiac Enzymes 08/05/24 Range/Units 11:21 Troponin I 0.042 (0.0-0.045) ng/mL Liver Function 08/05/24 Range/Units 11:21 Total Bilirubin 0.6 (0.3-1.2) mg/dL AST 15 (0-34) U/L ALT 8 L (10-49) U/L Alkaline Phosphatase 59 (46-116) U/L Albumin 3.6 (3.4-4.8) gm/dL Urine 08/05/24 Range/Units 15:15 Urine Color Lt-Yellow (Lt Yel-Yel) Urine Clarity Clear (Clear/Hazy) Urine pH 7.0 (5.0-7.0) Ur Specific [place] 1.013 (1.001-1.035) Urine Protein 3+ A (Neg - Trace) Urine Glucose (UA) 3+ A (Negative) Quality Measures Quality Measures none Medications Home Medications and Allergies Home Medications ?Medication ?Instructions ?Recorded ?Confirmed ?Type acetaminophen 300 mg-codeine 30 mg 1 tab PO Q6H 08/05/24 History tablet atorvastatin 40 mg tablet 40 mg PO QPM 08/05/24 History furosemide 20 mg tablet 20 mg PO BID 08/05/24 History glipizide 5 mg tablet 5 mg PO BID 08/05/24 5 History hydralazine 25 mg tablet 25 mg PO BID HYPERTENSION 08/06/24 History Allergies Allergy/AdvReac Type Severity Reaction Status Date / Time No Known Allergies Allergy Verified 08/05/24 10:58 Visit Medications Acetaminophen (Acetaminophen 325 Mg Tablet) 650 mg PO Q6H PRN PRN Reason: PAIN SCALE 1-3 (mild Stop: 09/05/24 00:33 Acetaminophen (Acetaminophen 325 Mg Tablet) 650 mg PO Q6H PRN PRN Reason: Fever >100 Stop: 09/05/24 00:33 Hydrocodone Bitart/Acetaminophen (Hydrocodone/Apap 10/325 Tab) 1 tab PO Q4HR PRN PRN Reason: PAIN SCALE 7-10 (Severe Stop: 08/11/24 00:33 Labetalol HCl (Labetalol Inj 5 Mg/Ml Vial 20 Ml) 10 mg IVP Q6H PRN PRN Reason: BP >220/110 Stop: 09/05/24 00:33 Ondansetron HCl (Ondansetron Inj 2 Mg/Ml Inj 2 Ml) 4 mg IV Q6H PRN; Protocol PRN Reason: NAUSEA OR VOMITING Stop: 09/05/24 00:33 Oxycodone/Acetaminophen (Oxycodone/Apap 5/325 Tablet) 1 tab PO Q6H PRN PRN Reason: PAIN SCALE 4-6 (Moderate Stop: 08/11/24 00:33 Pantoprazole Sodium (Pantoprazole Inj 40 Mg Vial) 40 mg IVP QDAY LUCIE Stop: 09/05/24 08:59 Discontinued Medications Aspirin (Aspirin 325 Mg Tablet) 325 mg PO X1 ONE Stop: 08/05/24 23:59 Last Admin: 08/06/24 00:09 Dose: 325 mg Hydralazine HCl (Hydralazine Inj 20 Mg/Ml Vial) 20 mg IV X1 ONE Stop: 08/05/24 19:07 Last Admin: 08/05/24 19:11 Dose: 20 mg Sodium Chloride (Ns) 1,000 mls @ 999 mls/hr IV .Q1H1M ONE Stop: 08/05/24 19:43 Last Admin: 08/05/24 19:07 Dose: Not Given Assessment & Plan Plan In summary: 63-year-old with PMHx of HTN, HLD, T2DM, CKD stage IV, presenting with AMS and speech difficulty x 2 weeks, admitted for stroke workup. AMS, dysarthria Ischemic stroke of left ganglia, subacute versus old Presenting with confusion, AMS, speech abnormality, difficulty walking that started 2 weeks ago following GLF. No reported head trauma. He lives alone, no other persons at home to corroborate story or duration/onset. He had dysarthria, and slight confusion on exam. Head CT showed left basal ganglia infarct, acute versus subacute. NIHSS 0. Teleneuro recommended an ASPIRIN. No significant metabolic or electrolyte abnormality other than CR 3.4 but patient has CKD. ? Seizure precaution ? Head elevation >30 degrees news. ? Permissive hypertension (although symptoms onset >24 hours ago) ? Continue LABETALOL 10 mg for BP >220/110 ? Continue TYLENOL for fever ? Continue ASPIRIN 81 mg daily ? Continue ATORVASTATIN 80 mg daily ? Pending bedside swallow eval ? Pending speech evaluation ? Pending physical therapy evaluation ? Pending lipid panel, TSH, A1c, echocardiogram ? Pending neurology recommendations Acute right knee pain Chronic arthritic left knee pain Has right knee knee pain that started 2 weeks ago following a GLF. Right knee exam showed tenderness without bony deformities or swelling. He takes ACETAMINOPHEN?CODEINE for chronic left knee pain, likely osteoarthritis per niece at bedside. ? Pain control ? Pending x-ray right knee ? Pending CK Leukocytosis Likely reactive. Although reports subjective fever, he is afebrile on admission. Denies cough, chest pain, GI or urinary symptoms. UA negative for UTI. COVID, influenza A/B are negative. ? Pending blood and urine cultures ? Daily labs CKD stage IV Admission CR 3.4, GFR 19. Baseline CR 3.6, per [facility] records. 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 Had dialysis cath placed in June but no dialysis yet. ? Renally dose meds, avoid overdiuresis and NEPHROTOXINS ? Daily CMP ? Pending nephrology recommendations HTN, HLD Currently normotensive. ? Consider restarting home HYDRALAZINE 25 mg BID ? Continue ATORVASTATIN as above ? Pending lipid panel T2DM GLUCOSE 196. ? INSULIN sliding scale ? Accu-Cheks ? Pending A1c A1c Normocytic anemia Hgb 12.0 Likely chronic in settings of CKD. No signs or symptoms of abnormal bleed. ? Daily labs ? Pending coag studies. Health maintenance Diet: Cardiac, CHO consistent GI prophylaxis: Not indicated DVT prophylaxis: SCD Antibiotics: Not indicated CODE STATUS: Full code Disposition: Pending brain MRI, nephro consult Patient case was discussed with attending, Mihai Thayer MD. Dennis Edmondson, PGYI Attending Provider Attestation/Addendum I attest that I was physically present for the evaluation, physical examination, lab and imaging review of the patient with the residents. I discussed the case with the residents and agree with the findings and plans of care as documented above. Patient is a 63 years old male with past medical history of hypertension, hyperlipidemia, diabetes mellitus, CKD who presented to the ED with complaint of altered mental status. As per patient's niece at bedside, patient was found to be slightly confused in his apartment in [place] and was brought to [place] by the family. The last time they were able to talk to him was about 2 weeks ago. [facility], patient has been having waxing and waning confusion, patient started becoming increasingly confused today and the family decided to visit the ED. Patient stated that he had a fall the week before but cannot recall all the events from last week. He complained of subjective fever and chills but denies shortness of breath, chest pain, burning micturition, abdominal pain, nausea vomiting. In the ED, vital signs are within normal limits. Lab results showed WBC of 12.4, creatinine of 3.4, glucose 192. EKG does not show any ST changes, UA is negative for UTI, chest x-ray does not show any active disease. Head CT was done, which shows nonhemorrhagic subacute versus old infarct in left basal ganglia. Teleneuro was consulted, who recommended admission for management of altered mentation and rule out acute stroke. We will admit the patient, starting him on aspirin, atorvastatin. We will obtain lipid panel, TSH, A1c, echocardiogram, physical and speech therapy, in-house neurology consult and brain MRI. Patient also complained of right knee pain, we will obtain an x-ray and start him on analgesics. Niece stated that patient was being consulted for possible start of hemodialysis, unsure how his kidney functions were before, we will monitor his kidney function and obtain nephrology consult. We will start him on insulin sliding scale for diabetes, slowly resume his antihypertensives for his high blood pressure. Emily Thayer MD
--- NOTE | 2024-08-06 04:49 | PC.NURSE ---
[id number] REPORT CALLED TO [facility] APONTE AT THIS TIME.
[2024-08-06 07:33] LABS: Basophils % (Auto) 0 % (0-2.5); Eosinophils # (Auto) 0.1 Thou/mm3 (0.0-0.5); Eosinophils % (Auto) 1 % (0-10); Immature Granulocytes % (Auto) 0 % (0-0); Immature Granulocytes Auto 0.03 Thou/mm3 (0.00-0.00); Lymphocytes # (Auto) 1.4 Thou/mm3 (1.0-4.8); Lymphocytes % (Auto) 16 % (10-50); Mean Corpuscular HGB Conc 34.4 g/dl (31.0-37.0); Mean Corpuscular Hemoglobin 29.8 pg (25.0-35.0); Mean Corpuscular Volume 87 fL (80-100); Monocytes # (Auto) 0.6 Thou/mm3 (0.0-0.8); Monocytes % (Auto) 7 % (0-12); Neutrophils # (Auto) 6.5 Thou/mm3 (1.8-7.7); Neutrophils % (Auto) 75 % (37-80); Nucleated Red Blood Cell % 0 /100 WBC (0); Platelet Count 223 Thou/mm3 (140-440); RDW Standard Deviation 37.2 fL (35.1-43.9); Red Blood Count 3.69 Miln/mm3 (4.50-5.90); White Blood Count 8.7 Thou/mm3 (3.8-10.6)
[2024-08-06 07:59] LABS: Glucose Estimated Average 160 mg/dL (80-131); Hemoglobin A1C 7.2 % Hgb (4.8-6.0)
[2024-08-06 08:50] LABS: Alanine Aminotransferase < 7 U/L (10-49); Albumin, Serum 3.3 gm/dL (3.4-4.8); Albumin/Globulin Ratio 1.4 (1.2-2.2); Alkaline Phosphatase 52 U/L (46-116); Anion Gap 8 (7-16); Aspartate Amino Transferase 12 U/L (0-34); BUN/Creatinine Ratio 14 Ratio (12-20); Bilirubin,Total 0.5 mg/dL (0.3-1.2); Blood Urea Nitrogen 48 mg/dL (9-23); Calcium 8.3 mg/dL (8.3-10.6); Calcium (Corrected) 8.9 mg/dL (8.5-10.1); Cardiac Risk Estimate 5.5 RATIO (4.0-6.7); Chloride 105 mMol/L (98-107); Cholesterol 258 mg/dL (132-200); Creatine Kinase 100 U/L (34-171); Creatinine (Component) 3.4 mg/dL (0.6-1.3); Estimated Creatinine Clearance 25.9 mL/min (>60); Globulin 2.3 gm/dL (2.3-3.5); Glucose 143 mg/dL (74-106); HDL Cholesterol 47 mg/dL (40-60); LDL Cholesterol,Calculated 171 mg/dL (0-130); Magnesium 1.8 mg/dL (1.6-2.6); Osmolality,Calculated 292 (275-295); Phosphorous 4.2 mg/dL (2.4-5.1); Potassium 4.2 mMol/L (3.4-5.1); Sodium 139 mMol/L (136-145); Total Protein 5.6 gm/dL (5.7-8.2); Triglycerides 198 mg/dL (30-150); eGFR 19 See Note
--- NOTE | 2024-08-06 08:51 | PD.RESCONSUL ---
HPI Data of Consult Consult date: 08/06/24 Requesting Physician: Emily Thayer MD Admitting Provider: Emily Thayer MD Attending Provider: Emily Thayer MD Primary Care Provider: Physician No Primary/Family Consult Narrative Reason for consult: LUCIE on CKD stage IV History of present illness: The patient is a 63-year-old female with significant past medical history of hypertension, hyperlipidemia, type 2 diabetes mellitus, CKD stage IV was brought in to ED on 08/05/2024 with chief complaint of altered mental status after being found by son in law in confused state. The patient reported that around 2-week back he had ground-level fall injuring his right knee, and went to sleep, but when he woke up next morning he was having difficulty ambulating associated with right-sided weakness. He has not been in contact with any family members for past, and as per niece his speech was abnormal initially, but during our examination he is speech was fine. 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 He is bringing out adequate urine. Currently he denies any fever or chills, nausea or vomiting, headache, lightheadedness, dysphagia or dysarthria chest pain or SOB, abdominal pain, diarrhea or any leg swelling. The patient is currently mildly hypertensive with blood pressure 171/86 with other vitals WNL. CBC significant for 11.0, chemistry panel BUN 48, creatinine 3.4 and GFR 19 with baseline creatinine 3.6. A1c 7.2, triglyceride 198, cholesterol 258, LDL 171. TSH and free T4 WNL. UA significant for protein 3+, glucose 3+, blood 1+, and rare bacteria. EKG revealed sinus rhythm with short [place] acute ST changes, head CT revealed nonhemorrhagic, subacute versus old infarct of left basal ganglia no acute hemorrhage, mass effect or midline shift. CXR without any active disease, CT chest/abdomen/pelvis revealed calcification of left descending artery, cholelithiasis, tiny gallstones, multiple pancreatic calcifications nonobstructive renal calculi, perinephric stranding, moderate hepatomegaly urinary bladder wall is thickened up to 5 mm with possible cystitis. Brain MRI revealed no acute hemorrhage, mass effect or midline shift. Significant for large acute infarct left basal ganglia/caudate nucleus. PMH: As mentioned above PSHx: None Meds: Hydralazine 25 Mg twice daily, glipizide 5 Mg daily, atorvastatin 20 Mg daily at night, furosemide 40 Mg twice daily codeine once daily for left knee pain. Allergies: No known allergies Social history: Denies smoking, illicit drug use. Occasional alcohol use. Nephrology consultation was done for further management of LUCIE on CKD stage IV, along with hypertensive emergency management. cc:: cc: Emily Thayer MD Review of Systems Review of Systems Systems Reviewed: All systems reviewed, normal except as documented Past Medical History Past Medical History CARDIAC: Positive Edema and Hypertension; Negative Hypercholesterolemia or Congestive Heart Failure RESPIRATORY: Positive Respiratory Disorders; Negative Chronic Obstructive Pulmonary Disease (COPD) GENITOURINARY: Positive Chronic Kidney Disease and Renal Disease ENT: Positive Cataracts ENDOCRINE: Positive Diabetes Mellitus Type 2; Negative Diabetes Mellitus Type 1 Surgical History OTHER SURGICAL HX: left arm fistula preparing Social History SMOKING STATUS: Former smoker Exam Vital Signs Temp Pulse Resp BP Pulse Ox O2 Del Method 97.3 F 73 18 174/90 H 98 Room Air 08/06/24 08:00 08/06/24 08:00 08/06/24 08:00 08/06/24 08:00 08/06/24 08:00 08/06/24 08:00 Narrative Exam General: Elderly obese gentleman, cooperative, no acute distress, Alert and Oriented x 3 HEENT: Moist mucous membranes, oropharynx clear Neck: Supple, No masses, No JVD CVS: S1S2 Regular rate and rhythm, No murmurs, rubs or gallops Lungs: Clear to auscultation with no accessory use, no wheeze no rhonchi Abd: Soft, NT/ND, +BS, no organomegaly Ext: No edema, warm and well perfused, left forearm with patent fistula for hemodialysis Skin: No rash Psych: Appropriate mood and affect Results Labs 08/07/24 04:23 08/07/24 04:23 Labs: Short CBC 08/05/24 08/06/24 Range/Units 11:21 07:00 WBC 12.4 H 8.7 (3.8-10.6) Thou/mm3 Hgb 12.0 L 11.0 L (13.5-16.0) g/dL Hct 34.1 L 32.0 L (41.0-53.0) % Plt Count 263 223 D (140-440) Thou/mm3 BMP 08/05/24 08/06/24 11:21 07:00 Sodium 138 139 Potassium 4.4 4.2 Chloride 104 105 Carbon Dioxide 24.3 26.0 BUN 45 H 48 H Creatinine 3.4 H 3.4 H Glucose 192 H 143 H Calcium 8.5 8.3 Cardiac Enzymes 08/05/24 08/06/24 Range/Units 11:21 07:00 Total Creatine Kinase 100 (34-171) U/L Troponin I 0.042 (0.0-0.045) ng/mL Liver Function 08/05/24 08/06/24 Range/Units 11:21 07:00 Total Bilirubin 0.6 0.5 (0.3-1.2) mg/dL AST 15 12 (0-34) U/L ALT 8 L < 7 L (10-49) U/L Alkaline Phosphatase 59 52 (46-116) U/L Albumin 3.6 3.3 L (3.4-4.8) gm/dL Urine 08/05/24 Range/Units 15:15 Urine Color Lt-Yellow (Lt Yel-Yel) Urine Clarity Clear (Clear/Hazy) Urine pH 7.0 (5.0-7.0) Ur Specific [place] 1.013 (1.001-1.035) Urine Protein 3+ A (Neg - Trace) Urine Glucose (UA) 3+ A (Negative) Quality Measures Quality Measures none Medications Home Medications and Allergies Home Medications ?Medication ?Instructions ?Recorded ?Confirmed ?Type acetaminophen 300 mg-codeine 30 mg 1 tab PO Q6H 08/05/24 08/05/24 History tablet atorvastatin 40 mg tablet 40 mg PO QPM 08/05/24 08/05/24 History furosemide 20 mg tablet 20 mg PO BID 08/05/24 08/06/24 History glipizide 5 mg tablet 5 mg PO BID 08/05/24 08/05/24 History hydralazine 25 mg tablet 25 mg PO BID HYPERTENSION 08/05/24 08/06/24 History Allergies Allergy/AdvReac Type Severity Reaction Status Date / Time No Known Allergies Allergy Verified 08/05/24 10:58 Visit Medications Acetaminophen (Acetaminophen 325 Mg Tablet) 650 mg PO Q6H PRN PRN Reason: PAIN SCALE 1-3 (mild Stop: 09/05/24 00:33 Acetaminophen (Acetaminophen 325 Mg Tablet) 650 mg PO Q6H PRN PRN Reason: Fever >100 Stop: 09/05/24 00:33 Hydrocodone Bitart/Acetaminophen (Hydrocodone/Apap 10/325 Tab) 1 tab PO Q4HR PRN PRN Reason: PAIN SCALE 7-10 (Severe Stop: 08/11/24 00:33 Aspirin (Aspirin Ec 81 Mg Tabec) 81 mg PO QDAY [facility] Stop: 09/05/24 08:59 Atorvastatin Calcium (Atorvastatin Calcium 20 Mg Tablet) 80 mg PO HS [facility] Stop: 09/05/24 20:59 Dextrose (Dextrose 50%-Water Inj 50 Ml Syringe) 25 ml IV Q15MIN PRN PRN Reason: BG 50-70 responsive npo pt Stop: 09/05/24 00:38 Dextrose (Dextrose 50%-Water Inj 50 Ml Syringe) 50 ml IV Q15MIN PRN PRN Reason: BG <50 OR BG <70 & pt unresponsive Stop: 09/05/24 00:38 Glucagon (Glucagon Inj 1 Mg Vial) 1 mg IM Q15MIN PRN PRN Reason: BG <70, and no IV access Hydralazine HCl (Hydralazine Hcl 25 Mg Tablet) 25 mg PO BID [facility] Stop: 09/05/24 08:59 Insulin Human Lispro (Insulin Lispro (Admelog) 1 Unit/0.01 Ml Unit) 0 unit SC AC [facility]; Protocol Stop: 09/05/24 11:29 Labetalol HCl (Labetalol Inj 5 Mg/Ml Vial 20 Ml) 10 mg IVP Q6H PRN PRN Reason: BP >220/110 Stop: 09/05/24 00:33 Ondansetron HCl (Ondansetron Inj 2 Mg/Ml Inj 2 Ml) 4 mg IV Q6H PRN; Protocol PRN Reason: NAUSEA OR VOMITING Stop: 09/05/24 00:33 Oxycodone/Acetaminophen (Oxycodone/Apap 5/325 Tablet) 1 tab PO Q6H PRN PRN Reason: PAIN SCALE 4-6 (Moderate Stop: 08/11/24 00:33 Pantoprazole Sodium (Pantoprazole Inj 40 Mg Vial) 40 mg IVP QDAY [facility] Stop: 09/05/24 08:59 Discontinued Medications Aspirin (Aspirin 325 Mg Tablet) 325 mg PO X1 ONE Stop: 08/05/24 23:59 Last Admin: 08/06/24 00:09 Dose: 325 mg Hydralazine HCl (Hydralazine Inj 20 Mg/Ml Vial) 20 mg IV X1 ONE Stop: 08/05/24 19:07 Last Admin: 08/05/24 19:11 Dose: 20 mg Sodium Chloride (Ns) 1,000 mls @ 999 mls/hr IV .Q1H1M ONE Stop: 08/05/24 19:43 Last Admin: 08/05/24 19:07 Dose: Not Given Insulin Human Lispro (Insulin Lispro (Admelog) 1 Unit/0.01 Ml Unit) 0 unit SC ACHS [facility]; Protocol Stop: 09/05/24 07:29 Last Admin: 08/06/24 07:43 Dose: Not Given Assessment & Plan Plan The patient is a 63-year-old female with significant past medical history of hypertension, hyperlipidemia, type 2 diabetes mellitus, CKD stage IV was brought in to ED on 08/05/2024 with chief complaint of altered mental status after being found by son in law in confused state was found to have Large acute infarct left basal ganglia/caudate nucleus. Nephrology consultation was done for further management of CKD stage IV, along with hypertensive emergency management. 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 He is bringing out adequate urine. -Continue to monitor renal panel -Avoid nephrotoxic drugs -Renal diet -Strict ins and outs -Consider adding losartan 25 Mg daily to prevent further renal damage, and titrate losartan to maximum tolerated dose #HTN -Permissive hypertension for 24-48 hours, even though the timeframe of stroke is unknown at this time -Continue to monitor blood pressure closely -Consider adding losartan 25 Mg daily #Normocytic anemia Likely secondary to chronic renal disease, versus iron deficiency anemia Presented with hemoglobin of 12, this morning 11.0, MCV 87 -Ordered iron panel -Ordered ferritin level #Acute encephalopathy, resolved #Dysarthria, resolved 2/2 #Ischemic stroke of left ganglia, subacute versus old # Acute right knee pain #Chronic arthritic left knee pain #Leukocytosis #CKD stage IV #HLD #T2DM -Management deferred to primary care team The patient's management plan was discussed with my attending physician MD Aung Mercedes MD, PGY2 Attending Provider Attestation/Addendum Patient seen and examined with resident physician Dr. Bowden. Note reviewed, agree with findings and recommendations. Patient with advanced chronic kidney disease-s/p left AV fistula created in [place]. Mood to be with his family permanently to [place]. Noted to have uncontrolled hypertension and also neurological symptoms. Admitted with stroke. Renal [place] to use to basic renal workup well. Did explain to the patient that there is no need for urgent dialysis. Will monitor closely. Thank you Emily for allowing me to participate in the care of Mr. Medina
[2024-08-06 09:07] LABS: Free T4 (Free Thyroxine) 1.25 ng/dL (0.89-1.76); Thyroid Stimulating Hormone 1.55 uIU/mL (0.55-4.78)
[2024-08-06] MEDS: PANTOPRAZOLE INJ 40 MG VIAL IVP (09:31)
[2024-08-06] MEDS: hydrALAZINE HCL 25 MG TABLET PO ×2 (09:32→20:22)
[2024-08-06] MEDS: LOSARTAN POTASSIUM 25 MG TABLET PO (09:32)
[2024-08-06] MEDS: DAPAGLIFLOZIN PROPANEDIOL 5 MG TABLET 10 MG PO (09:32)
[2024-08-06] MEDS: ASPIRIN EC 81 MG TABEC PO (09:32)
[2024-08-06] MEDS: INSULIN LISPRO (AdmeLOG) 1 UNIT/0.01 ML UNIT SC ×2 (12:11→17:02)
--- NOTE | 2024-08-06 15:18 | ESPR_ITS ---
Documentation for date of: 08/06/24 Subjective Subjective Interval history: Patient seen at bedside. No acute overnight events. He has no complaints. On examination, he is AAOX2 and does have a slurred speech. Strength is preserved in bilateral extremities.\ MRI brain was done, which showed a large acute infarct of the left basal ganglia/caudate nucleus. Per teleneuro recs, patient is still on aspirin, will follow up on other recommendations. Labs reviewed- TSH normal, A1c- 7.2 Pending echocardiogram Exam Vital Signs Temp Pulse Resp BP Pulse Ox O2 Del Method 96.9 F 69 19 199/93 H 98 Room Air 08/06/24 12:00 08/06/24 12:00 08/06/24 12:00 08/06/24 12:00 08/06/24 12:08/06/24 12:00 Narrative Exam GENERAL: AAOX2, some memory gaps NEURO: Slurred speech, no nystagmus, no intention tremors, normal finger to nose and heel to saul test. Strength 5/5 in bilateral upper and lower extremities. HEENT: Moist mucosa. Eyes open, symmetrical, & clear CARDIO: No chest pain on palpation. Heart RRR, no obvious murmurs PULM: No noted coughing/dyspnea. Lungs CTA B/L GI: Abdomen soft, nondistended, no pain on palpation. BSx4 URO/GROUND [employer] SU[employer]:: No further abnormalities noted. SKIN/MSK/EXT: No wounds/rashes/edema/amputations, no pain on palpation. Pedal pulses present B/L Objective Labs 08/07/24 04:23 08/07/24 04:23 Labs: Laboratory Results - last 24 hr 08/05/24 08/06/24 15:15 07:00 WBC 8.7 RBC 3.69 L Hgb 11.0 L Hct 32.0 L MCV 87 MCH 29.8 MCHC 34.4 RDW Std Deviation 37.2 Plt Count 223 D Neut % (Auto) 75 Lymph % (Auto) 16 [place] % (Auto) 7 Eos % (Auto) 1 Baso % (Auto) 0 Neut # (Auto) 6.5 Lymph # (Auto) 1.4 [place] # (Auto) 0.6 Eos # (Auto) 0.1 Baso # (Auto) 0.0 Immature Gran # (Auto) 0.03 H Absolute Nucleated RBC 0.00 Immature Gran % 0 Nucleated RBC % 0 Sodium 139 Potassium 4.2 Chloride 105 Carbon Dioxide 26.0 Anion Gap 8 BUN 48 H Creatinine 3.4 H Estim Creat Clear Calc 25.9 L eGFR 19 L BUN/Creatinine Ratio [address] Glu mg/dL 160 H Hemoglobin A1c 7.2 H Calculated Osmolality 292 Calcium 8.3 Corrected Calcium 8.9 Phosphorus 4.2 Magnesium 1.8 Total Bilirubin 0.5 AST 12 ALT < 7 L Alkaline Phosphatase 52 Total Creatine Kinase 100 Total Protein 5.6 L Albumin 3.3 L Globulin 2.3 Albumin/Globulin Ratio 1.4 Triglycerides 198 H Cholesterol 258 H LDL Cholesterol, Calc 171 H HDL Cholesterol 47 Cholesterol/HDL Ratio 5.5 TSH 1.55 Free T4 1.25 Ur Collection Type Clean Catch Urine Color Lt-Yellow Urine Clarity Clear Urine pH 7.0 Ur Specific [employer] 1.013 Urine Protein 3+ A Urine Glucose (UA) 3+ A Urine Ketones Negative Urine Blood 1+ A Urine Nitrite Negative Urine Bilirubin Negative Urine Urobilinogen (Auto) Negative Ur Leukocyte Esterase Negative Urine RBC 1 Urine WBC 1 Ur Squamous Epith Cells < 1 Urine Bacteria Rare Hyaline Casts < 1 Quality Measures Quality Measures none Assessment & Plan Assessment Current Active Medications: Generic Name Dose Route Start Last Admin Trade Name Freq PRN Reason Stop Dose Admin Acetaminophen 650 mg 08/06/24 00:34 Acetaminophen 325 Mg Tablet PO 09/05/24 00:33 Q6H PRN PAIN SCALE 1-3 (mild Acetaminophen 650 mg 08/06/24 00:34 Acetaminophen 325 Mg Tablet PO 09/05/24 00:33 Q6H PRN Fever >100 Hydrocodone Bitart/Acetaminophen 1 tab 08/06/24 00:34 Hydrocodone/Apap 10/325 Tab PO 08/11/24 00:33 Q4HR PRN PAIN SCALE 7-10 (Severe Aspirin 81 mg 08/06/24 09:00 08/06/24 09:32 Aspirin Ec 81 Mg Tabec PO 09/05/24 08:59 81 mg QDAY LUCIE Administration Atorvastatin Calcium 80 mg 08/06/24 21:00 Atorvastatin Calcium 20 Mg Tablet PO 09/05/24 20:59 HS LUCIE Dapagliflozin 10 mg 08/06/24 09:30 08/06/24 09:32 Dapagliflozin Propanediol 5 Mg Tablet PO 09/05/24 09:29 10 mg QDAY LUCIE Administration Dextrose 25 ml 08/06/24 00:39 Dextrose 50%-Water Inj 50 Ml Syringe IV 09/05/24 00:38 Q15MIN PRN BG 50-70 responsive npo pt Dextrose 50 ml 08/06/24 00:39 Dextrose 50%-Water Inj 50 Ml Syringe IV 09/05/24 00:38 Q15MIN PRN BG <50 OR BG <70 & pt unresponsive Glucagon 1 mg 08/06/24 00:39 Glucagon Inj 1 Mg Vial IM Q15MIN PRN BG <70, and no IV access Hydralazine HCl 25 mg 08/06/24 09:00 08/06/24 09:32 Hydralazine Hcl 25 Mg Tablet PO 09/05/24 08:59 25 mg BID LUCIE Administration Insulin Human Lispro 0 unit 08/06/24 11:30 08/06/24 12:11 Insulin Lispro (Admelog) 1 Unit/0.01 Ml Unit SC 09/05/24 11:29 1 unit AC LUCIE Administration Protocol Labetalol HCl 10 mg 08/06/24 00:34 Labetalol Inj 5 Mg/Ml Vial 20 Ml IVP 09/05/24 00:33 Q6H PRN BP >220/110 Losartan Potassium 25 mg 08/07/24 09:00 Losartan Potassium 25 Mg Tablet PO 09/06/24 08:59 QDAY LUCIE Ondansetron HCl 4 mg 08/06/24 00:34 Ondansetron Inj 2 Mg/Ml Inj 2 Ml IV 09/05/24 00:33 Q6H PRN NAUSEA OR VOMITING Protocol Oxycodone/Acetaminophen 1 tab 08/06/24 00:34 Oxycodone/Apap 5/325 Tablet PO 08/11/24 00:33 Q6H PRN PAIN SCALE 4-6 (Moderate Pantoprazole Sodium 40 mg 08/06/24 09:00 08/06/24 09:31 Pantoprazole Inj 40 Mg Vial IVP 09/05/24 08:59 40 mg QDAY LUCIE Administration Plan Summary: : The patient is a 63-year-old with PMHx of HTN, HLD, T2DM, CKD stage IV, presenting with AMS and speech difficulty x 2 weeks, admitted for stroke workup. #Acute encephalopathy #Acute infarct of left basal ganglia/caudate nucleus The patient is a 63-year-old male presenting with confusion, AMS, speech abnormality, difficulty walking that started 2 weeks ago following GLF. No reported head trauma. He lives alone, no other persons at home to corroborate story or duration/onset. He had dysarthria, and slight confusion on exam. Head CT showed left basal ganglia infarct, acute versus subacute. NIHSS 0. Teleneuro recommended Aspirin No significant metabolic or electrolyte abnormality other than CR 3.4 but patient has CKD. 08/06/2024-MRI of the brain was done which showed large acute infarcts in the left basal ganglia/caudate nucleus. Patient is still on aspirin per teleneuro recs: Follow-up on neurology recommendations. Plan: -Continue aspirin 81 mg daily and atorvastatin 80 mg ?Neurology consulted, PT recommendations - Physical therapy #Acute right knee pain s/p fall #Chronic arthritic left knee pain Has right knee knee pain that started 2 weeks ago following a GLF. Right knee exam showed tenderness without bony deformities or swelling. He takes ACETAMINOPHEN?CODEINE for chronic left knee pain, likely osteoarthritis per niece at bedside. X-ray of right knee shows no acute fracture Plan: ?Continue pain management Leukocytosis-resolved Likely reactive. Although reports subjective fever, he is afebrile on admission. Denies cough, chest pain, GI or urinary symptoms. UA negative for UTI. COVID, influenza A/B are negative. ? Pending blood and urine cultures ? Daily labs CKD stage IV Admission CR 3.4, GFR 19. Baseline CR 3.6, per [facility] records. Has sort line that he follows in [place]. Had dialysis cath placed in June but no dialysis yet. Plan: ? Renally dose meds, avoid nephrotoxic agents ? Daily CMP ? Nephrology consulted, appreciate recommendations HTN, HLD Currently normotensive. ? Consider restarting home HYDRALAZINE 25 mg BID ? Continue ATORVASTATIN as above ? Pending lipid panel T2DM GLUCOSE 196 on admission. A1c-7.2 Plan: - ISS ? Bedside glucose check AC - Hypoglycemic protocols in place Normocytic anemia Hgb 12.0 Likely chronic in settings of CKD. No signs or symptoms of abnormal bleed. ? Daily labs ? Pending coag studies. Health maintenance Diet: Cardiac, CHO consistent GI prophylaxis: Not indicated DVT prophylaxis: SCD Antibiotics: Not indicated CODE STATUS: Full code Disposition: Telemetry Case was discussed with Dr Nichole PGY-2 and attending physician, Dr Tor Greenwood MD PGY-1 L Patient is a 63-year-old with PMHx of HTN, HLD, T2DM, CKD stage IV, presenting with AMS and speech difficulty x 2 weeks, admitted for stroke workup. He had dysarthria, and slight confusion on exam. Head CT showed left basal ganglia infarct, acute versus subacute. NIHSS sore noted to be 0 ; Teleneuro recommended Aspirin only. MRI of the brain was done which showed large acute infarcts in the left basal ganglia/caudate nucleus. Plan: Started Atorvastatin, In house Neurology consulted for frutehr recommendations. Pending ECHO w/ bubble study results. PT ordered for discharge recommendations and ambulation safety assessment. Patient examined and case discussed with the team including attending physician. Note reviewed, I agree with the care plan as documented. - Howard Nichole MD, PGY 2 Attending Provider Attestation/Addendum I reviewed labs, imaging, EKG, home medications and prior available records. Face to face evaluation was performed by me. I have personally examined the patient and discussed assessment and plan with the IM team. I reviewed the resident note and agree with the plan with exceptions as below. Acute encephalopathy: Likely in the setting of CVA. MRI showed left basal ganglia infarct. Patient was started on atorvastatin and aspirin. Appreciate neurology recommendations. PT evaluation CKD stage IV: Creatinine is close to baseline. Monitor kidney function. Avoid nephrotoxins. Renally dosed medications.
[2024-08-06] MEDS: hydrALAZINE INJ 20 MG/ML VIAL 10 MG IV (16:56)
[2024-08-06] MEDS: ATORVASTATIN CALCIUM 20 MG TABLET 80 MG PO (20:22)
--- NOTE | 2024-08-06 22:57 | ESPR_ITS ---
Documentation for date of: 08/06/24 Exam - Neurology Vital Signs Temp Pulse Resp BP Pulse Ox O2 Del Method 98.3 F 73 13 146/82 H 95 Room Air 08/06/24 20:00 08/06/24 20:22 08/06/24 20:00 08/06/24 20:22 08/06/24 20:00 08/06/24 20:00 Objective Labs 08/06/24 07:00 08/06/24 07:00 Labs: Laboratory Results - last 24 hr 08/06/24 07:00 WBC 8.7 RBC 3.69 L Hgb 11.0 L Hct 32.0 L MCV 87 MCH 29.8 MCHC 34.4 RDW Std Deviation 37.2 Plt Count 223 D Neut % (Auto) 75 Lymph % (Auto) 16 [place] % (Auto) 7 Eos % (Auto) 1 Baso % (Auto) 0 Neut # (Auto) 6.5 Lymph # (Auto) 1.4 [place] # (Auto) 0.6 Eos # (Auto) 0.1 Baso # (Auto) 0.0 Immature Gran # (Auto) 0.03 H Absolute Nucleated RBC 0.00 Immature Gran % 0 Nucleated RBC % 0 Sodium 139 Potassium 4.2 Chloride 105 Carbon Dioxide 26.0 Anion Gap 8 BUN 48 H Creatinine 3.4 H Estim Creat Clear Calc 25.9 L eGFR 19 L BUN/Creatinine Ratio 14 [address]ucose [address] Glu mg/dL 160 H Hemoglobin A1c 7.2 H Calculated Osmolality 292 Calcium 8.3 Corrected Calcium 8.9 Phosphorus 4.2 Magnesium 1.8 Total Bilirubin 0.5 AST 12 ALT < 7 L Alkaline Phosphatase 52 Total Creatine Kinase 100 Total Protein 5.6 L Albumin 3.3 L Globulin 2.3 Albumin/Globulin Ratio 1.4 Triglycerides 198 H Cholesterol 258 H LDL Cholesterol, Calc 171 H HDL Cholesterol 47 Cholesterol/HDL Ratio 5.5 TSH 1.55 Free T4 1.25 Assessment & Plan Assessment and plan (1) Acute CVA (cerebrovascular accident): Status: Acute Assessment and plan: MRI brain showed acute infarction in the left caudate nucleus. continue with ASA, Plavix and statin. FU with rest of the workup
[2024-08-07] VITALS (8 sets, daily range): BP systolic 142–183; BP diastolic 74–109; PULSE 65–78; RESP 11–17; TEMP 36–37.2; O2SAT 96–98; BMI 28.7
[2024-08-07 06:02] LABS: Basophils % (Auto) 1 % (0-2.5); Eosinophils # (Auto) 0.1 Thou/mm3 (0.0-0.5); Eosinophils % (Auto) 2 % (0-10); Hematocrit 30.3 % (41.0-53.0); Hemoglobin 10.4 g/dL (13.5-16.0); Immature Granulocytes % (Auto) 0 % (0-0); Immature Granulocytes Auto 0.03 Thou/mm3 (0.00-0.00); Lymphocytes # (Auto) 1.5 Thou/mm3 (1.0-4.8); Lymphocytes % (Auto) 19 % (10-50); Mean Corpuscular HGB Conc 34.3 g/dl (31.0-37.0); Mean Corpuscular Hemoglobin 30.4 pg (25.0-35.0); Mean Corpuscular Volume 89 fL (80-100); Monocytes # (Auto) 0.5 Thou/mm3 (0.0-0.8); Monocytes % (Auto) 7 % (0-12); Neutrophils # (Auto) 5.7 Thou/mm3 (1.8-7.7); Neutrophils % (Auto) 72 % (37-80); Nucleated Red Blood Cell % 0 /100 WBC (0); Platelet Count 200 Thou/mm3 (140-440); RDW Standard Deviation 37.6 fL (35.1-43.9); Red Blood Count 3.42 Miln/mm3 (4.50-5.90); White Blood Count 7.9 Thou/mm3 (3.8-10.6)
[2024-08-07 06:04] LABS: Partial Thromboplastin Time 27.3 Seconds (22.0-36.0); Prothrombin Time 10.8 Seconds (9.0-12.2)
[2024-08-07 06:17] LABS: Ferritin 69 ng/mL (10.5-307.3); Total Iron Binding Capacity 220 mcg/dL (250-425)
[2024-08-07 06:27] LABS: Iron 70 mcg/dL (65-175); Percent Iron Saturation 31 % (20-55); Unsaturated Iron Binding 150 (225-295)
[2024-08-07 06:40] LABS: Alanine Aminotransferase < 7 U/L (10-49); Albumin, Serum 3.2 gm/dL (3.4-4.8); Albumin/Globulin Ratio 1.7 (1.2-2.2); Alkaline Phosphatase 47 U/L (46-116); Anion Gap 8 (7-16); Aspartate Amino Transferase < 10 U/L (0-34); BUN/Creatinine Ratio 14 Ratio (12-20); Bilirubin,Total 0.4 mg/dL (0.3-1.2); Blood Urea Nitrogen 49 mg/dL (9-23); Calcium 8.1 mg/dL (8.3-10.6); Calcium (Corrected) 8.7 mg/dL (8.5-10.1); Carbon Dioxide 24.8 mMol/L (20.0-31.0); Chloride 104 mMol/L (98-107); Creatinine (Component) 3.4 mg/dL (0.6-1.3); Estimated Creatinine Clearance 22.2 mL/min (>60); Globulin 1.9 gm/dL (2.3-3.5); Glucose 140 mg/dL (74-106); Magnesium 1.8 mg/dL (1.6-2.6); Osmolality,Calculated 288 (275-295); Phosphorous 4.2 mg/dL (2.4-5.1); Sodium 137 mMol/L (136-145); Total Protein 5.1 gm/dL (5.7-8.2); eGFR 19 See Note
--- NOTE | 2024-08-07 08:43 | ESPR_ITS ---
Documentation for date of: 08/07/24 Subjective Subjective Interval history: The patient is a 63-year-old female with significant past medical history of hypertension, hyperlipidemia, type 2 diabetes mellitus, CKD stage IV was brought in to ED on 08/05/2024 with chief complaint of altered mental status after being found by son in law in confused state. The patient reported that around 2-week back he had ground-level fall injuring his right knee, and went to sleep, but when he woke up next morning he was having difficulty ambulating associated with right-sided weakness. He has not been in contact with any family members for past, and as per niece his speech was abnormal initially, but during our examination he is speech was fine. The patient recently moved from [place] where he was following up with a utilities service investigator, and already has a left arm AV fistula, but has not underwent any hemodialysis so far. He is bringing out adequate urine. Currently he denies any fever or chills, nausea or vomiting, headache, lightheadedness, dysphagia or dysarthria chest pain or SOB, abdominal pain, diarrhea or any leg swelling. The patient is currently mildly hypertensive with blood pressure 171/86 with other vitals WNL. CBC significant for 11.0, chemistry panel BUN 48, creatinine 3.4 and GFR 19 with baseline creatinine 3.6. A1c 7.2, triglyceride 198, cholesterol 258, LDL 171. TSH and free T4 WNL. UA significant for protein 3+, glucose 3+, blood 1+, and rare bacteria. EKG revealed sinus rhythm with short [place] acute ST changes, head CT revealed nonhemorrhagic, subacute versus old infarct of left basal ganglia no acute hemorrhage, mass effect or midline shift. CXR without any active disease, CT chest/abdomen/pelvis revealed calcification of left descending artery, cholelithiasis, tiny gallstones, multiple pancreatic calcifications nonobstructive renal calculi, perinephric stranding, moderate hepatomegaly urinary bladder wall is thickened up to 5 mm with possible cystitis. Brain MRI revealed no acute hemorrhage, mass effect or midline shift. Significant for large acute infarct left basal ganglia/caudate nucleus. PMH: As mentioned above PSHx: None Meds: Hydralazine 25 Mg twice daily, glipizide 5 Mg daily, atorvastatin 20 Mg daily at night, furosemide 40 Mg twice daily codeine once daily for left knee pain. Allergies: No known allergies Social history: Denies smoking, illicit drug use. Occasional alcohol use. Nephrology consultation was done for further management of CKD stage IV, along with hypertensive emergency management. 08/07/2024: The patient was interviewed and examined at the bedside. He reported doing well. He denied any headache, nausea or vomiting, any focal weakness or decreased sensation, any changes in bowel or bladder habit, chest pain or SOB, abdominal pain or leg swelling. He has been mildly hypertensive, as allowed permissive hypertension. Hb 10.4, Renal function stable with BUN 49 and creatinine 3.4. The patient is recommended to follow-up with utilities service investigator Dr. Breen in 1 week after discharge. Exam Vital Signs Temp Pulse Resp BP Pulse Ox O2 Del Method 97.5 F 71 12 164/74 H 98 Room Air 08/07/24 04:00 08/07/24 04:00 08/07/24 04:00 08/07/24 04:00 08/07/24 04:00 08/07/24 04:00 Narrative Exam General: Elderly obese gentleman, cooperative, no acute distress, Alert and Oriented x 3 HEENT: Moist mucous membranes, oropharynx clear Neck: Supple, No masses, No JVD CVS: S1S2 Regular rate and rhythm, No murmurs, rubs or gallops Lungs: Clear to auscultation with no accessory use, no wheeze no rhonchi Abd: Soft, NT/ND, +BS, no organomegaly Ext: No edema, warm and well perfused, left forearm with patent fistula for hemodialysis Skin: No rash Psych: Appropriate mood and affect Objective Labs 08/07/24 04:23 08/07/24 04:23 Labs: Laboratory Results - last 24 hr 08/06/24 08/07/24 07:00 04:23 WBC 7.9 RBC 3.42 L Hgb 10.4 L Hct 30.3 L MCV 89 MCH 30.4 MCHC 34.3 RDW Std Deviation 37.6 Plt Count 200 Neut % (Auto) 72 Lymph % (Auto) 19 [place] % (Auto) 7 Eos % (Auto) 2 Baso % (Auto) 1 Neut # (Auto) 5.7 Lymph # (Auto) 1.5 [place] # (Auto) 0.5 Eos # (Auto) 0.1 Baso # (Auto) 0.0 Immature Gran # (Auto) 0.03 H Absolute Nucleated RBC 0.00 Immature Gran % 0 Nucleated RBC % 0 PT 10.8 INR 1.0 APTT 27.3 Sodium 139 137 Potassium 4.2 4.0 Chloride 105 104 Carbon Dioxide 26.0 24.8 Anion Gap 8 8 BUN 48 H 49 H Creatinine 3.4 H 3.4 H Estim Creat Clear Calc 25.9 L 22.2 L eGFR 19 L 19 L BUN/Creatinine Ratio 14 14 Glucose 143 H 140 H Calculated Osmolality 292 288 Calcium 8.3 8.1 L Corrected Calcium 8.9 8.7 Phosphorus 4.2 4.2 Magnesium 1.8 1.8 Iron 70 TIBC 220 L Iron Saturation 31 Unsat Iron Binding 150 L Ferritin 69 Total Bilirubin 0.5 0.4 AST 12 < 10 ALT < 7 L < 7 L Alkaline Phosphatase 52 47 Total Creatine Kinase 100 Total Protein 5.6 L 5.1 L Albumin 3.3 L 3.2 L Globulin 2.3 1.9 L Albumin/Globulin Ratio 1.4 1.7 Triglycerides 198 H Cholesterol 258 H LDL Cholesterol, Calc 171 H HDL Cholesterol 47 Cholesterol/HDL Ratio 5.5 TSH 1.55 Free T4 1.25 Quality Measures Quality Measures none Assessment & Plan Assessment Current Active Medications: Generic Name Dose Route Start Last Admin Trade Name Freq PRN Reason Stop Dose Admin Acetaminophen 650 mg 08/06/24 00:34 Acetaminophen 325 Mg Tablet PO 09/05/24 00:33 Q6H PRN PAIN SCALE 1-3 (mild Acetaminophen 650 mg 08/06/24 00:34 Acetaminophen 325 Mg Tablet PO 09/05/24 00:33 Q6H PRN Fever >100 Hydrocodone Bitart/Acetaminophen 1 tab 08/06/24 00:34 Hydrocodone/Apap 10/325 Tab PO 08/11/24 00:33 Q4HR PRN PAIN SCALE 7-10 (Severe Aspirin 81 mg 08/06/24 09:00 08/06/24 09:32 Aspirin Ec 81 Mg Tabec PO 09/05/24 08:59 81 mg QDAY LUCIE Administration Atorvastatin Calcium 80 mg 08/06/24 21:00 08/06/24 20:22 Atorvastatin Calcium 20 Mg Tablet PO 09/05/24 20:59 80 mg HS LUCIE Administration Clopidogrel Bisulfate 75 mg 08/07/24 09:00 Clopidogrel Bisulfate 75 Mg Tablet PO 09/06/24 08:59 QDAY LUCIE Dextrose 25 ml 08/06/24 00:39 Dextrose 50%-Water Inj 50 Ml Syringe IV 09/05/24 00:38 Q15MIN PRN BG 50-70 responsive npo pt Dextrose 50 ml 08/06/24 00:39 Dextrose 50%-Water Inj 50 Ml Syringe IV 09/05/24 00:38 Q15MIN PRN BG <50 OR BG <70 & pt unresponsive Glucagon 1 mg 08/06/24 00:39 Glucagon Inj 1 Mg Vial IM Q15MIN PRN BG <70, and no IV access Hydralazine HCl 25 mg 08/06/24 09:00 08/06/24 20:22 Hydralazine Hcl 25 Mg Tablet PO 09/05/24 08:59 25 mg BID LUCIE Administration Insulin Human Lispro 0 unit 08/06/24 11:30 08/07/24 07:45 Insulin Lispro (Admelog) 1 Unit/0.01 Ml Unit SC 09/05/24 11:29 Not Given AC [facility] Protocol Labetalol HCl 10 mg 08/06/24 16:29 Labetalol Inj 5 Mg/Ml Vial 20 Ml IVP 09/05/24 00:33 Q6H PRN SBP>160, HR>70 Losartan Potassium 25 mg 08/07/24 09:00 Losartan Potassium 25 Mg Tablet PO 09/06/24 08:59 QDAY LUCIE Ondansetron HCl 4 mg 08/06/24 00:34 Ondansetron Inj 2 Mg/Ml Inj 2 Ml IV 09/05/24 00:33 Q6H PRN NAUSEA OR VOMITING Protocol Oxycodone/Acetaminophen 1 tab 08/06/24 00:34 Oxycodone/Apap 5/325 Tablet PO 08/11/24 00:33 Q6H PRN PAIN SCALE 4-6 (Moderate Plan The patient is a 63-year-old female with significant past medical history of hypertension, hyperlipidemia, type 2 diabetes mellitus, CKD stage IV was brought in to ED on 08/05/2024 with chief complaint of altered mental status after being found by son in law in confused state was found to have Large acute infarct left basal ganglia/caudate nucleus. Nephrology consultation was done for further management of CKD stage IV, along with hypertensive emergency management. 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 The patient recently moved from [place] where he was following up with a utilities service investigator at [facility], and already has a left arm AV fistula, but has not underwent any hemodialysis so far. He is bringing out adequate urine. -Continue to monitor renal panel -Avoid nephrotoxic drugs -Renal diet -Strict ins and outs -Consider adding losartan 25 Mg daily to prevent further renal damage, and titrate losartan to maximum tolerated dose -Not a candidate for SGLT2 inhibitor as GFR is <25. -The patient is recommended to follow-up with utilities service investigator Dr. Breen in 1 week after discharge. #HTN -Permissive hypertension for 24-48 hours, even though the timeframe of stroke is unknown at this time -Continue to monitor blood pressure closely -Added losartan 25 Mg daily, titrate up as tolerated #Normocytic anemia Likely iron deficiency anemia Presented with hemoglobin of 12, this morning 11.0, MCV 87 Iron panel revealed Iron 70, TIBC 220, Fe sat 31%, Ferritin 69 suggestive of SOUTH -Consider adding FeSO4 #Acute encephalopathy, resolved #Dysarthria, resolved 2/2 #Ischemic stroke of left ganglia, subacute versus old # Acute right knee pain #Chronic arthritic left knee pain #Leukocytosis #CKD stage IV #HLD #T2DM -Management deferred to primary care team Thank you for the opportunity to participate nephrology team in this patient care. We will sign off from this case at this point, and we will be happy to consult again if needed in future. The patient is recommended to follow-up with utilities service investigator Dr. Breen in 1 week after discharge The patient's management plan was discussed with my attending physician MD Aung Mercedes MD, PGY2 Attending Provider Attestation/Addendum Patient seen and examined with resident physician Dr. Bowden. Note reviewed, agree with findings and recommendations. Patient with advanced chronic kidney disease-s/p left AV fistula created in [place]. Mood to be with his family permanently to [place]. Noted to have uncontrolled hypertension and also neurological symptoms. Admitted with stroke. Renal [place] to use to basic renal workup well. Did explain to the patient that there is no need for urgent dialysis. Will monitor closely. Thank you Emily for allowing me to participate in the care of Mr. Medina
[2024-08-07] MEDS: ASPIRIN EC 81 MG TABEC PO (09:33)
[2024-08-07] MEDS: FERROUS SULF 325 MG TABLET PO (09:33)
[2024-08-07] MEDS: CLOPIDOGREL BISULFATE 75 MG TABLET PO (09:33)
[2024-08-07] MEDS: LOSARTAN POTASSIUM 25 MG TABLET PO (09:33)
[2024-08-07] MEDS: hydrALAZINE HCL 25 MG TABLET PO ×2 (09:33→20:32)
[2024-08-07] MEDS: INSULIN LISPRO (AdmeLOG) 1 UNIT/0.01 ML UNIT SC ×2 (11:55→17:32)
--- NOTE | 2024-08-07 12:57 | PD.RESCONSUL ---
HPI Data of Consult Patient: new to practice Requesting Physician: Huan Lentz MD Admitting Provider: Emily Thayer MD Attending Provider: Huan Lentz MD Primary Care Provider: Physician No Primary/Family Consult Narrative Reason for consult: CVA History of present illness: 63 yo male HTN, HLD, T2DM, CKD stage IV, presented to the ED due to difficulty with speech. Per patient, 2 weeks ago, on Sunday, he had a ground-level fall that evening and landed on his right knee. He went to sleep and woke up the next day feeling unlike himself. He felt dizzy when he walking, associated with weakness on right side. He hasn't been in contact with anybody over the last 2 weeks, thus there was nobody to witness speech abnormalities. Currently his speech is not at baseline. Imaging showed MR brain showed Large acute infarct left basal ganglia/caudate nucleus. Currently on ASA and high dose statin. cc:: cc: Huan Lentz MD Exam Vital Signs Temp Pulse Resp BP Pulse Ox O2 Del Method 96.8 F 65 11 L 162/82 H 96 Room Air 08/07/24 12:00 08/07/24 12:08/07/24 12:08/07/24 12:00 08/07/24 12:08/07/24 12:00 Narrative Exam Constitutional: AOx3, able to speak full sentences HEENT: NC/AT, PERRLA, oral mucosa moist, neck supple CVS: RRR, S1-S2 present, no murmurs RESP: CTAB GI: non distended, non tender to palpation, NBS MSK: full ROM, no peripheral edema, peripheral pulses present Skin: warm and dry, no rashes NEURO:? ? MENTAL STATUS:?AAOx3 ? LANG/SPEECH: non-Fluent, difficultly naming, active repetition & comprehension, dyasthriia ? CRANIAL NERVES: ? II: Pupils equal and reactive, no RAPD,?normal visual field and fundus ? III, IV, : EOM intact, no gaze preference or deviation ? V: normal ? VII: no facial asymmetry ? VIII: normal hearing to speech ? MOTOR: 5/5 in both upper and lower extremities ? REFLEXES: 2/4 throughout,?bilateral flexor plantars ? SENSORY: Normal to touch, temperature & pin prick in all extremiteis ? COORD: Normal finger to nose and heel to saul, no tremor, no dysmetria Results Labs 08/07/24 04:23 08/07/24 04:23 Labs: Short CBC 08/07/24 Range/Units 04:23 WBC 7.9 (3.8-10.6) Thou/mm3 Hgb 10.4 L (13.5-16.0) g/dL Hct 30.3 L (41.0-53.0) % Plt Count 200 (140-440) Thou/mm3 BMP 08/07/24 04:23 Sodium 137 Potassium 4.0 Chloride 104 Carbon Dioxide 24.8 BUN 49 H Creatinine 3.4 H Glucose 140 H Calcium 8.1 L Liver Function 08/07/24 Range/Units 04:23 Total Bilirubin 0.4 (0.3-1.2) mg/dL AST < 10 (0-34) U/L ALT < 7 L (10-49) U/L Alkaline Phosphatase 47 (46-116) U/L Albumin 3.2 L (3.4-4.8) gm/dL Quality Measures Quality Measures none Medications Home Medications and Allergies Home Medications ?Medication ?Instructions ?Recorded ?Confirmed ?Type acetaminophen 300 mg-codeine 30 mg 1 tab PO Q6H 08/05/24 08/05/24 History tablet atorvastatin 40 mg tablet 40 mg PO QPM 08/05/24 08/05/24 History furosemide 20 mg tablet 20 mg PO BID 08/05/24 08/06/24 History glipizide 5 mg tablet 5 mg PO BID 08/05/24 08/05/24 History hydralazine 25 mg tablet 25 mg PO BID HYPERTENSION 08/05/24 08/06/24 History Allergies Allergy/AdvReac Type Severity Reaction Status Date / Time No Known Allergies Allergy Verified 08/05/24 10:58 Visit Medications Acetaminophen (Acetaminophen 325 Mg Tablet) 650 mg PO Q6H PRN PRN Reason: PAIN SCALE 1-3 (mild Stop: 09/05/24 00:33 Acetaminophen (Acetaminophen 325 Mg Tablet) 650 mg PO Q6H PRN PRN Reason: Fever >100 Stop: 09/05/24 00:33 Hydrocodone Bitart/Acetaminophen (Hydrocodone/Apap 10/325 Tab) 1 tab PO Q4HR PRN PRN Reason: PAIN SCALE 7-10 (Severe Stop: 08/11/24 00:33 Aspirin (Aspirin Ec 81 Mg Tabec) 81 mg PO QDAY [facility] Stop: 09/05/24 08:59 Last Admin: 08/07/24 09:33 Dose: 81 mg Atorvastatin Calcium (Atorvastatin Calcium 20 Mg Tablet) 80 mg PO HS [facility] Stop: 09/05/24 20:59 Last Admin: 08/06/24 20:22 Dose: 80 mg Clopidogrel Bisulfate (Clopidogrel Bisulfate 75 Mg Tablet) 75 mg PO QDAY [facility] Stop: 09/06/24 08:59 Last Admin: 08/07/24 09:33 Dose: 75 mg Dextrose (Dextrose 50%-Water Inj 50 Ml Syringe) 25 ml IV Q15MIN PRN PRN Reason: BG 50-70 responsive npo pt Stop: 09/05/24 00:38 Dextrose (Dextrose 50%-Water Inj 50 Ml Syringe) 50 ml IV Q15MIN PRN PRN Reason: BG <50 OR BG <70 & pt unresponsive Stop: 09/05/24 00:38 Ferrous Sulfate (Ferrous Sulf 325 Mg Tablet) 325 mg PO QOD [facility] Stop: 09/06/24 08:59 Last Admin: 08/07/24 09:33 Dose: 325 mg Glucagon (Glucagon Inj 1 Mg Vial) 1 mg IM Q15MIN PRN PRN Reason: BG <70, and no IV access Hydralazine HCl (Hydralazine Hcl 25 Mg Tablet) 25 mg PO BID [facility] Stop: 09/05/24 08:59 Last Admin: 08/07/24 09:33 Dose: 25 mg Insulin Human Lispro (Insulin Lispro (Admelog) 1 Unit/0.01 Ml Unit) [address] [facility]; Protocol Stop: 09/05/24 11:29 Last Admin: 08/07/24 11:55 Dose: 2 unit Labetalol HCl (Labetalol Inj 5 Mg/Ml Vial 20 Ml) 10 mg IVP Q6H PRN PRN Reason: SBP>160, HR>70 Stop: 09/05/24 00:33 Losartan Potassium (Losartan Potassium 25 Mg Tablet) 25 mg PO QDAY [facility] Stop: 09/06/24 08:59 Last Admin: 08/07/24 09:33 Dose: 25 mg Ondansetron HCl (Ondansetron Inj 2 Mg/Ml Inj 2 Ml) 4 mg IV Q6H PRN; Protocol PRN Reason: NAUSEA OR VOMITING Stop: 09/05/24 00:33 Oxycodone/Acetaminophen (Oxycodone/Apap 5/325 Tablet) 1 tab PO Q6H PRN PRN Reason: PAIN SCALE 4-6 (Moderate Stop: 08/11/24 00:33 Discontinued Medications Aspirin (Aspirin 325 Mg Tablet) 325 mg PO X1 ONE Stop: 08/05/24 23:59 Last Admin: 08/06/24 00:09 Dose: 325 mg Dapagliflozin (Dapagliflozin Propanediol 5 Mg Tablet) 5 mg PO QDAY [facility] Stop: 09/05/24 09:14 Last Admin: 08/06/24 13:11 Dose: Not Given Dapagliflozin (Dapagliflozin Propanediol 5 Mg Tablet) 10 mg PO QDAY [facility] Stop: 09/05/24 09:29 Last Admin: 08/06/24 09:32 Dose: 10 mg Hydralazine HCl (Hydralazine Inj 20 Mg/Ml Vial) 20 mg IV X1 ONE Stop: 08/05/24 19:07 Last Admin: 08/05/24 19:11 Dose: 20 mg Hydralazine HCl (Hydralazine Inj 20 Mg/Ml Vial) 10 mg IV X1 ONE Stop: 08/06/24 16:30 Last Admin: 08/06/24 16:56 Dose: 10 mg Sodium Chloride (Ns) 1,000 mls @ 999 mls/hr IV .Q1H1M ONE Stop: 08/05/24 19:43 Last Admin: 08/05/24 19:07 Dose: Not Given Insulin Human Lispro (Insulin Lispro (Admelog) 1 Unit/0.01 Ml Unit) 0 unit SC [facility]; Protocol Stop: 09/05/24 07:29 Last Admin: 08/06/24 07:43 Dose: Not Given Labetalol HCl (Labetalol Inj 5 Mg/Ml Vial 20 Ml) 10 mg IVP Q6H PRN PRN Reason: BP >220/110 Stop: 09/05/24 00:33 Losartan Potassium (Losartan Potassium 25 Mg Tablet) 25 mg PO QDAY [facility] Stop: 09/05/24 09:14 Last Admin: 08/06/24 09:32 Dose: 25 mg Pantoprazole Sodium (Pantoprazole Inj 40 Mg Vial) 40 mg IVP QDAY [facility] Stop: 09/05/24 08:59 Last Admin: 08/06/24 09:31 Dose: 40 mg Assessment & Plan Problem List (1) Type 2 diabetes mellitus: Status: Chronic Assessment and plan: needs better control of sugar: a1c: 7.2 (2) Essential (primary) hypertension: Status: Acute Assessment and plan: Continue aggressive BP control Plan Assesment/plan: #Acute L basal ganglia/caudate nucleus infarct #Dysarthria A: Patient presented with difficulty with speech. MR brain w/ w/o on 08/06/24 showed Large acute infarct left basal ganglia/caudate nucleus. ECG reviewed showed no arrhythmias. P: -cont ASA and high dose statin -start plavix -strict BP control -target euglycemia BG 140-180 -physical therapy -speech therapy -pending echo - Patient's care was discussed with my attending physician, Dr. Cruz, Osmani Ramesh MD Internal Medicine PGY-3 Attending Provider Attestation/Addendum I personally have seen and examined the patient with resident and I agree with resident's findings, assessment and plan. FU with stroke w/u including the ECho, continue with ASA and Plavix and statin.
--- NOTE | 2024-08-07 14:33 | ESPR_ITS ---
Documentation for date of: 08/07/24 Subjective Subjective Interval history: Patient seen at bedside. No acute overnight events. He has no new complaints today, continues to have slurred speech and continues to have difficulty ambulating especially on the lower extremity. Evaluated by Neurology yesterday, recommends to continue aspirin, plavix and a statin. Nephrology recommended to add losartan to antihypertensive regimen The patient was evaluated by physical therapy who recommended SNF and family is agreeable. Exam Vital Signs Temp Pulse Resp BP Pulse Ox O2 Del Method 96.8 F 65 11 L 162/82 H 96 Room Air 08/07/24 12:00 08/07/24 12:00 08/07/24 12:00 08/07/24 12:00 08/07/24 12:00 08/07/24 12:00 Objective Labs 08/08/24 05:01 08/08/24 05:01 Labs: Laboratory Results - last 24 hr 08/07/24 04:23 WBC 7.9 RBC 3.42 L Hgb 10.4 L Hct 30.3 L MCV 89 MCH 30.4 MCHC 34.3 RDW Std Deviation 37.6 Plt Count 200 Neut % (Auto) 72 Lymph % (Auto) 19 [place] % (Auto) 7 Eos % (Auto) 2 Baso % (Auto) 1 Neut # (Auto) 5.7 Lymph # (Auto) 1.5 [place] # (Auto) 0.5 Eos # (Auto) 0.1 Baso # (Auto) 0.0 Immature Gran # (Auto) 0.03 H Absolute Nucleated RBC 0.00 Immature Gran % 0 Nucleated RBC % 0 PT 10.8 INR 1.0 APTT 27.3 Sodium 137 Potassium 4.0 Chloride 104 Carbon Dioxide 24.8 Anion Gap 8 BUN 49 H Creatinine 3.4 H Estim Creat Clear Calc 22.2 L eGFR 19 L BUN/Creatinine Ratio 14 Glucose 140 H Calculated Osmolality 288 Calcium 8.1 L Corrected Calcium 8.7 Phosphorus 4.2 Magnesium 1.8 Iron 70 TIBC 220 L Iron Saturation 31 Unsat Iron Binding 150 L Ferritin 69 Total Bilirubin 0.4 AST < 10 ALT < 7 L Alkaline Phosphatase 47 Total Protein 5.1 L Albumin 3.2 L Globulin 1.9 L Albumin/Globulin Ratio 1.7 Quality Measures Quality Measures none Assessment & Plan Assessment Current Active Medications: Generic Name Dose Route Start Last Admin Trade Name Freq PRN Reason Stop Dose Admin Acetaminophen 650 mg 08/06/24 00:34 Acetaminophen 325 Mg Tablet PO 09/05/24 00:33 Q6H PRN PAIN SCALE 1-3 (mild Acetaminophen 650 mg 08/06/24 00:34 Acetaminophen 325 Mg Tablet PO 09/05/24 00:33 Q6H PRN Fever >100 Hydrocodone Bitart/Acetaminophen 1 tab 08/06/24 00:34 Hydrocodone/Apap 10/325 Tab PO 08/11/24 00:33 Q4HR PRN PAIN SCALE 7-10 (Severe Aspirin 81 mg 08/06/24 09:00 08/07/24 09:33 Aspirin Ec 81 Mg Tabec PO 09/05/24 08:59 81 mg QDAY LUCIE Administration Atorvastatin Calcium 80 mg 08/06/24 21:00 08/06/24 20:22 Atorvastatin Calcium 20 Mg Tablet PO 09/05/24 20:59 80 mg HS LUCIE Administration Clopidogrel Bisulfate 75 mg 08/07/24 09:00 08/07/24 09:33 Clopidogrel Bisulfate 75 Mg Tablet PO 09/06/24 08:59 75 mg QDAY LUCIE Administration Dextrose 25 ml 08/06/24 00:39 Dextrose 50%-Water Inj 50 Ml Syringe IV 09/05/24 00:38 Q15MIN PRN BG 50-70 responsive npo pt Dextrose 50 ml 08/06/24 00:39 Dextrose 50%-Water Inj 50 Ml Syringe IV 09/05/24 00:38 Q15MIN PRN BG <50 OR BG <70 & pt unresponsive Ferrous Sulfate 325 mg 08/07/24 09:00 08/07/24 09:33 Ferrous Sulf 325 Mg Tablet PO 09/06/24 08:59 325 mg QOD LUCIE Administration Glucagon 1 mg 08/06/24 00:39 Glucagon Inj 1 Mg Vial IM Q15MIN PRN BG <70, and no IV access Hydralazine HCl 25 mg 08/06/24 09:00 08/07/24 09:33 Hydralazine Hcl 25 Mg Tablet PO 09/05/24 08:59 25 mg BID LUCIE Administration Insulin Human Lispro 0 unit 08/06/24 11:30 08/07/24 11:55 Insulin Lispro (Admelog) 1 Unit/0.01 Ml Unit SC 09/05/24 11:29 2 unit AC LUCIE Administration Protocol Labetalol HCl 10 mg 08/06/24 16:29 Labetalol Inj 5 Mg/Ml Vial 20 Ml IVP 09/05/24 00:33 Q6H PRN SBP>160, HR>70 Losartan Potassium 25 mg 08/07/24 09:00 08/07/24 09:33 Losartan Potassium 25 Mg Tablet PO 09/06/24 08:59 25 mg QDAY LUCIE Administration Ondansetron HCl 4 mg 08/06/24 00:34 Ondansetron Inj 2 Mg/Ml Inj 2 Ml IV 09/05/24 00:33 Q6H PRN NAUSEA OR VOMITING Protocol Oxycodone/Acetaminophen 1 tab 08/06/24 00:34 Oxycodone/Apap 5/325 Tablet PO 08/11/24 00:33 Q6H PRN PAIN SCALE 4-6 (Moderate Plan Summary: : The patient is a 63-year-old with PMHx of HTN, HLD, T2DM, CKD stage IV, presenting with AMS and speech difficulty x 2 weeks, admitted for stroke workup. #Acute encephalopathy #Acute infarct of left basal ganglia/caudate nucleus The patient is a 63-year-old male presenting with confusion, AMS, speech abnormality, difficulty walking that started 2 weeks ago following GLF. No reported head trauma. He lives alone, no other persons at home to corroborate story or duration/onset. He had dysarthria, and slight confusion on exam. Head CT showed left basal ganglia infarct, acute versus subacute. NIHSS 0. Teleneuro recommended Aspirin No significant metabolic or electrolyte abnormality other than CR 3.4 but patient has CKD. 08/07/2024- Clincally has remained stable. PT recommends SNF and family is agreeable. Neuro recommends to add plavix. Pending echocardiogram Plan: -Continue aspirin 81 mg daily and atorvastatin 80 mg, add plavix 75mg -Pending echocardiogram ?Neurology consulted, appreciate recommendations - Continue PT until DC to SNF #Acute right knee pain s/p fall #Chronic arthritic left knee pain Has right knee knee pain that started 2 weeks ago following a GLF. Right knee exam showed tenderness without bony deformities or swelling. He takes ACETAMINOPHEN?CODEINE for chronic left knee pain, likely osteoarthritis per niece at bedside. X-ray of right knee shows no acute fracture Plan: ?Continue pain management Leukocytosis-resolved Likely reactive. Although reports subjective fever, he is afebrile on admission. Denies cough, chest pain, GI or urinary symptoms. UA negative for UTI. COVID, influenza A/B are negative. ? Pending blood and urine cultures ? Daily labs CKD stage IV Admission CR 3.4, GFR 19. Baseline CR 3.6, per [facility] records. 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 Had dialysis cath placed in June but no dialysis yet. 08/07/2024- Nephrology evaluated patient, recommends to add losartan to antihypertensive medication regimen and follow up with Dr Breen on discharge. Plan: - Losartan 25mg daily ? Renally dose meds, avoid nephrotoxic agents ? Daily CMP ? Nephrology consulted, appreciate recommendations HTN, HLD Currently normotensive. ? Consider restarting home HYDRALAZINE 25 mg BID ? Continue ATORVASTATIN as above ? Pending lipid panel T2DM GLUCOSE 196 on admission. A1c-7.2 Plan: - ISS ? Bedside glucose check AC - Hypoglycemic protocols in place Normocytic anemia Hgb 12.0 Likely chronic in settings of CKD. No signs or symptoms of abnormal bleed. ? Daily labs ? Pending coag studies. Health maintenance Diet: Cardiac, CHO consistent GI prophylaxis: Not indicated DVT prophylaxis: SCD Antibiotics: Not indicated CODE STATUS: Full code Disposition: Telemetry Case was discussed with Dr Ross PGY-2 and attending physician, Dr oTr Greenwood MD PGY-1 Attending Provider Attestation/Addendum I reviewed labs, imaging, EKG, home medications and prior available records. Face to face evaluation was performed by me. I have personally examined the patient and discussed assessment and plan with the IM team. I reviewed the resident note and agree with the plan with exceptions as below. Acute encephalopathy: Likely in the setting of CVA. MRI showed left basal ganglia infarct. Patient was started on atorvastatin and aspirin. Appreciate neurology recommendations. PT evaluation: Recommended SNF Follow-up echocardiogram CKD stage IV: Creatinine is close to baseline. Monitor kidney function. Avoid nephrotoxins. Renally dosed medications.
[2024-08-07 14:57] LABS: Creatinine,Random Urine 60 mg/dL (30-125); Protein Total, Random Urine 502 mg/dL (1-14)
[2024-08-07] MEDS: ATORVASTATIN CALCIUM 20 MG TABLET 80 MG PO (20:32)
[2024-08-08] VITALS (12 sets, daily range): BP systolic 138–195; BP diastolic 75–93; PULSE 65–71; RESP 12–18; TEMP 36.1–37.2; O2SAT 96–98; BMI 28.7; BMI 14.0; BMI 28.5
[2024-08-08] MEDS: hydrALAZINE HCL 25 MG TABLET PO ×2 (01:59→08:37)
[2024-08-08] MEDS: LABETALOL INJ 5 MG/ML VIAL 20 ML 10 MG IVP (04:05)
[2024-08-08 05:40] LABS: Basophils % (Auto) 0 % (0-2.5); Eosinophils # (Auto) 0.3 Thou/mm3 (0.0-0.5); Eosinophils % (Auto) 2 % (0-10); Hematocrit 29.3 % (41.0-53.0); Hemoglobin 10.1 g/dL (13.5-16.0); Immature Granulocytes % (Auto) 1 % (0-0); Immature Granulocytes Auto 0.05 Thou/mm3 (0.00-0.00); Lymphocytes % (Auto) 19 % (10-50); Mean Corpuscular HGB Conc 34.5 g/dl (31.0-37.0); Mean Corpuscular Hemoglobin 30.5 pg (25.0-35.0); Mean Corpuscular Volume 89 fL (80-100); Monocytes # (Auto) 0.6 Thou/mm3 (0.0-0.8); Monocytes % (Auto) 6 % (0-12); Neutrophils # (Auto) 7.6 Thou/mm3 (1.8-7.7); Neutrophils % (Auto) 72 % (37-80); Nucleated Red Blood Cell % 0 /100 WBC (0); Platelet Count 221 Thou/mm3 (140-440); RDW Standard Deviation 37.4 fL (35.1-43.9); Red Blood Count 3.31 Miln/mm3 (4.50-5.90); White Blood Count 10.5 Thou/mm3 (3.8-10.6)
[2024-08-08 06:39] LABS: Alanine Aminotransferase < 7 U/L (10-49); Albumin, Serum 3.2 gm/dL (3.4-4.8); Albumin/Globulin Ratio 1.6 (1.2-2.2); Alkaline Phosphatase 49 U/L (46-116); Anion Gap 9 (7-16); Aspartate Amino Transferase < 10 U/L (0-34); BUN/Creatinine Ratio 14 Ratio (12-20); Bilirubin,Total 0.5 mg/dL (0.3-1.2); Blood Urea Nitrogen 50 mg/dL (9-23); Calcium 7.9 mg/dL (8.3-10.6); Calcium (Corrected) 8.5 mg/dL (8.5-10.1); Carbon Dioxide 22.1 mMol/L (20.0-31.0); Chloride 104 mMol/L (98-107); Creatinine (Component) 3.6 mg/dL (0.6-1.3); Glucose 136 mg/dL (74-106); Magnesium 1.8 mg/dL (1.6-2.6); Osmolality,Calculated 285 (275-295); Phosphorous 3.9 mg/dL (2.4-5.1); Potassium 3.9 mMol/L (3.4-5.1); Sodium 135 mMol/L (136-145); Total Protein 5.2 gm/dL (5.7-8.2); eGFR 18 See Note
[2024-08-08] MEDS: CLOPIDOGREL BISULFATE 75 MG TABLET PO (08:37)
[2024-08-08] MEDS: ASPIRIN EC 81 MG TABEC PO (08:37)
[2024-08-08] MEDS: LOSARTAN POTASSIUM 25 MG TABLET PO (08:37)
--- NOTE | 2024-08-08 10:37 | PC.SS ---
Patient is alert/oriented. Patient was able to verify demographics. Welsh speaking only. 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 Patient's insurance is a manged [facility] plan. SS spoke to patient's niece, Yeny, who confirmed insurance. Yeny states patient was originally living in [place], [place] alone. He was unable to care for himself. Patient was not able to perform any of his ADLs. He was found down in [facility] so family brought him here to [facility]. Patient will now be residing here with his daughter, Maris. Maris Porter, daughter, . Yeny is her daughter. PT evaluation was completed a second day yesterday and documented patient did much better and was able to ambulate up to 100 feet. Recommendations were for HH if patient was going to have someone at home 22/01. Yeny, the niece, was able to confirm patient's daughter will be staying with him. They would prefer home with HH. updated transfer nurse. staff verified that [facility]. provide HH for [place] patients. provided transfer nurse this information. Possible d/c today. Patient will need a FWW as well. SS will submit on [employer]. Patient's niece, Yeny, is the alt medical decision maker.
--- NOTE | 2024-08-08 11:01 | PC.SS ---
Patient d/c address: [address] [place] [address] Patient will be residing with his daughter, Maris Porter @ [phone]
--- NOTE | 2024-08-08 11:04 | PC.SS ---
Patient needs a FWW for home. The diagnosis creates mobility limitation that significantly impairs ability to participate in the patients activities of daily living either in their entirety, or in a reasonable time frame. Also the patient is able to safely use the walker and the patient?s mobility is sufficiently resolved with the use of the walker and cane has been ruled out.
[2024-08-08] MEDS: Milk Of Magnesia Susp 30 ML UDC PO (12:23)
[2024-08-08] MEDS: INSULIN LISPRO (AdmeLOG) 1 UNIT/0.01 ML UNIT SC (12:25)
--- NOTE | 2024-08-08 14:48 | ESPR_ITS ---
Documentation for date of: 08/08/24 Subjective Subjective Interval history: The patient is a 63-year-old female with significant past medical history of hypertension, hyperlipidemia, type 2 diabetes mellitus, CKD stage IV was brought in to ED on 08/05/2024 with chief complaint of altered mental status after being found by son in law in confused state. The patient reported that around 2-week back he had ground-level fall injuring his right knee, and went to sleep, but when he woke up next morning he was having difficulty ambulating associated with right-sided weakness. He has not been in contact with any family members for past, and as per niece his speech was abnormal initially, but during our examination he is speech was fine. The patient recently moved from [place] where he was following up with a hair salon manager, and already has a left arm AV fistula, but has not underwent any hemodialysis so far. He is bringing out adequate urine. Currently he denies any fever or chills, nausea or vomiting, headache, lightheadedness, dysphagia or dysarthria chest pain or SOB, abdominal pain, diarrhea or any leg swelling. The patient is currently mildly hypertensive with blood pressure 171/86 with other vitals WNL. CBC significant for 11.0, chemistry panel BUN 48, creatinine 3.4 and GFR 19 with baseline creatinine 3.6. A1c 7.2, triglyceride 198, cholesterol 258, LDL 171. TSH and free T4 WNL. UA significant for protein 3+, glucose 3+, blood 1+, and rare bacteria. EKG revealed sinus rhythm with short PA acute ST changes, head CT revealed nonhemorrhagic, subacute versus old infarct of left basal ganglia no acute hemorrhage, mass effect or midline shift. CXR without any active disease, CT chest/abdomen/pelvis revealed calcification of left descending artery, cholelithiasis, tiny gallstones, multiple pancreatic calcifications nonobstructive renal calculi, perinephric stranding, moderate hepatomegaly urinary bladder wall is thickened up to 5 mm with possible cystitis. Brain MRI revealed no acute hemorrhage, mass effect or midline shift. Significant for large acute infarct left basal ganglia/caudate nucleus. PMH: As mentioned above PSHx: None Meds: Hydralazine 25 Mg twice daily, glipizide 5 Mg daily, atorvastatin 20 Mg daily at night, furosemide 40 Mg twice daily codeine once daily for left knee pain. Allergies: No known allergies Social history: Denies smoking, illicit drug use. Occasional alcohol use. Nephrology consultation was done for further management of CKD stage IV, along with hypertensive emergency management. 08/07/2024: The patient was interviewed and examined at the bedside. He reported doing well. He denied any headache, nausea or vomiting, any focal weakness or decreased sensation, any changes in bowel or bladder habit, chest pain or SOB, abdominal pain or leg swelling. He has been mildly hypertensive, as allowed permissive hypertension. Hb 10.4, Renal function stable with BUN 49 and creatinine 3.4. 08/08/2024: The patient was interviewed and examined at the bedside. He reported doing well. He denied any headache, lightheadedness, nausea or vomiting, any fever or chills, any changes in bowel or bladder habit. He reported he is making good urine. His creatinine increased mildly from 3.4-3.6, and his baseline creatinine as per him is 3.6. The patient is recommended to follow-up with hair salon manager Dr. Breen in 1 week after discharge. Exam Vital Signs Temp Pulse Resp BP Pulse Ox O2 Del Method 98.1 F 69 17 149/76 H 96 Room Air 08/08/24 11:36 08/08/24 13:29 08/08/24 13:29 08/08/24 13:29 08/08/24 13:29 08/08/24 13:29 Narrative Exam General: Elderly obese gentleman, cooperative, no acute distress, Alert and Oriented x 3 HEENT: Moist mucous membranes, oropharynx clear Neck: Supple, No masses, No JVD CVS: S1S2 Regular rate and rhythm, No murmurs, rubs or gallops Lungs: Clear to auscultation with no accessory use, no wheeze no rhonchi Abd: Soft, NT/ND, +BS, no organomegaly Ext: No edema, warm and well perfused, left forearm with patent fistula for hemodialysis Skin: No rash Psych: Appropriate mood and affect Objective Labs 08/08/24 05:01 08/08/24 05:01 Labs: Laboratory Results - last 24 hr 08/07/24 08/08/24 11:11 05:01 WBC 10.5 RBC 3.31 L Hgb 10.1 L Hct 29.3 L MCV 89 MCH 30.5 MCHC 34.5 RDW Std Deviation 37.4 Plt Count 221 Neut % (Auto) 72 Lymph % (Auto) 19 [place] % (Auto) 6 Eos % (Auto) 2 Baso % (Auto) 0 Neut # (Auto) 7.6 Lymph # (Auto) 2.0 [place] # (Auto) 0.6 Eos # (Auto) 0.3 Baso # (Auto) 0.0 Immature Gran # (Auto) 0.05 H Absolute Nucleated RBC 0.00 Immature Gran % 1 H Nucleated RBC % 0 Sodium 135 L Potassium 3.9 Chloride 104 Carbon Dioxide 22.1 Anion Gap 9 BUN 50 H Creatinine 3.6 H Estim Creat Clear Calc 21.0 L eGFR 18 L BUN/Creatinine Ratio 14 Glucose 136 H Calculated Osmolality 285 Calcium 7.9 L Corrected Calcium 8.5 Phosphorus 3.9 Magnesium 1.8 Total Bilirubin 0.5 AST < 10 ALT < 7 L Alkaline Phosphatase 49 Total Protein 5.2 L Albumin 3.2 L Globulin 2.0 L Albumin/Globulin Ratio 1.6 Ur Random Creatinine 60 U Random Total Protein 502 H Quality Measures Quality Measures none Assessment & Plan Assessment Current Active Medications: Generic Name Dose Route Start Last Admin Trade Name Freq PRN Reason Stop Dose Admin Acetaminophen 650 mg 08/06/24 00:34 Acetaminophen 325 Mg Tablet PO 09/05/24 00:33 Q6H PRN PAIN SCALE 1-3 (mild Acetaminophen 650 mg 08/06/24 00:34 Acetaminophen 325 Mg Tablet PO 09/05/24 00:33 Q6H PRN Fever >100 Hydrocodone Bitart/Acetaminophen 1 tab 08/06/24 00:34 Hydrocodone/Apap 10/325 Tab PO 08/11/24 00:33 Q4HR PRN PAIN SCALE 7-10 (Severe Aspirin 81 mg 08/06/24 09:00 08/08/24 08:37 Aspirin Ec 81 Mg Tabec PO 09/05/24 08:59 81 mg QDAY LUCIE Administration Atorvastatin Calcium 80 mg 08/06/24 21:00 08/07/24 20:32 Atorvastatin Calcium 20 Mg Tablet PO 09/05/24 20:59 80 mg HS LUCIE Administration Clopidogrel Bisulfate 75 mg 08/07/24 09:00 08/08/24 08:37 Clopidogrel Bisulfate 75 Mg Tablet PO 09/06/24 08:59 75 mg QDAY LUCIE Administration Dextrose 25 ml 08/06/24 00:39 Dextrose 50%-Water Inj 50 Ml Syringe IV 09/05/24 00:38 Q15MIN PRN BG 50-70 responsive npo pt Dextrose 50 ml 08/06/24 00:39 Dextrose 50%-Water Inj 50 Ml Syringe IV 09/05/24 00:38 Q15MIN PRN BG <50 OR BG <70 & pt unresponsive Ferrous Sulfate 325 mg 08/07/24 09:00 08/07/24 09:33 Ferrous Sulf 325 Mg Tablet PO 09/06/24 08:59 325 mg QOD LUCIE Administration Glucagon 1 mg 08/06/24 00:39 Glucagon Inj 1 Mg Vial IM Q15MIN PRN BG <70, and no IV access Hydralazine HCl 25 mg 08/06/24 09:00 08/08/24 08:37 Hydralazine Hcl 25 Mg Tablet PO 09/05/24 08:59 25 mg BID LUCIE Administration Insulin Human Lispro 0 unit 08/06/24 11:30 08/08/24 12:25 Insulin Lispro (Admelog) 1 Unit/0.01 Ml Unit SC 09/05/24 11:29 1 unit AC LUCIE Administration Protocol Labetalol HCl 10 mg 08/06/24 16:29 08/08/24 04:05 Labetalol Inj 5 Mg/Ml Vial 20 Ml IVP 09/05/24 00:33 10 mg Q6H PRN Administration SBP>160, HR>70 Losartan Potassium 25 mg 08/07/24 09:00 08/08/24 08:37 Losartan Potassium 25 Mg Tablet PO 09/06/24 08:59 25 mg QDAY LUCIE Administration Magnesium Hydroxide 30 ml 08/08/24 11:30 08/08/24 12:23 Milk Of Magnesia Susp 30 Ml Udc PO 09/07/24 11:29 30 ml QDAY LUCIE Administration Protocol Ondansetron HCl 4 mg 08/06/24 00:34 Ondansetron Inj 2 Mg/Ml Inj 2 Ml IV 09/05/24 00:33 Q6H PRN NAUSEA OR VOMITING Protocol Oxycodone/Acetaminophen 1 tab 08/06/24 00:34 Oxycodone/Apap 5/325 Tablet PO 08/11/24 00:33 Q6H PRN PAIN SCALE 4-6 (Moderate Plan The patient is a 63-year-old female with significant past medical history of hypertension, hyperlipidemia, type 2 diabetes mellitus, CKD stage IV was brought in to ED on 08/05/2024 with chief complaint of altered mental status after being found by son in law in confused state was found to have Large acute infarct left basal ganglia/caudate nucleus. Nephrology consultation was done for further management of CKD stage IV, along with hypertensive emergency management. 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 The patient recently moved from [place] where he was following up with a hair salon manager at [facility], and already has a left arm AV fistula, but has not underwent any hemodialysis so far. He is bringing out adequate urine. -Continue to monitor renal panel -Avoid nephrotoxic drugs -Renal diet -Strict ins and outs -Losartan 25 Mg daily to prevent further renal damage, and from tomorrow we will increase the losartan to 50 Mg daily. We will titrate up to maximum dose tolerated by the patient to prevent further kidney injury. -Not a candidate for SGLT2 inhibitor as GFR is <25. -The patient is recommended to follow-up with hair salon manager Dr. Breen in 1 week after discharge. #HTN -Permissive hypertension for 24-48 hours, even though the timeframe of stroke is unknown at this time -Continue to monitor blood pressure closely -On losartan 25 Mg daily, titrate up as tolerated #Normocytic anemia Likely iron deficiency anemia Presented with hemoglobin of 12, this morning 11.0, MCV 87 Iron panel revealed Iron 70, TIBC 220, Fe sat 31%, Ferritin 69 suggestive of SOUTH -Consider adding FeSO4 #Acute encephalopathy, resolved #Dysarthria, resolved 2/2 #Ischemic stroke of left ganglia, subacute versus old # Acute right knee pain #Chronic arthritic left knee pain #Leukocytosis #CKD stage IV #HLD #T2DM -Management deferred to primary care team Thank you for the opportunity to participate nephrology team in this patient care. We will sign off from this case at this point, and we will be happy to consult again if needed in future. The patient is recommended to follow-up with hair salon manager Dr. Breen in 1 week after discharge The patient's management plan was discussed with my attending physician MD Aung Mercedes MD, PGY2 Attending Provider Attestation/Addendum Patient seen and examined with resident physician Dr. Bowden. Note reviewed, agree with findings and recommendations. Patient with advanced chronic kidney disease-s/p left AV fistula created in [place]. Mood to be with his family permanently to [place]. Noted to have uncontrolled hypertension and also neurological symptoms. Admitted with stroke. Renal [place] to use to basic renal workup well. Did explain to the patient that there is no need for urgent dialysis. Will monitor closely. 08/08/2024 patient creatinine remained stable. Recommended to follow-up with me in the outpatient setting. He has stage IV CKD. no need for emergency dialysis.
--- NOTE | 2024-08-08 15:42 | ESDS_ITS ---
<Statement entered by Howard Nichole MD - 08/08/24 17:35> Patient was examined with the team including attending physician. Note reviewed, I agree with the discharge plan as documented. - Howard Nichole M.D. PGY2 Planned Discharge Date 08/08/24 DS: Providers Provider Date of admission: 08/06/24 00:34 Primary care physician: Physician No Primary/Family Admitting Provider: Emily Thayer MD Attending Provider on Admission: Huan Lentz MD Consults: 08/06/24 00:36 Referral Physical Therapy Routine Comment: Physician Instructions: Referral Speech Therapy Routine Comment: 08/06/24 00:37 Consult to Nephrology Stat Comment: CKD, CR 3.4, has HD cath but no HD yet Consulting Provider: Panfilo Breen 08/06/24 06:42 Consult to Neurology / Tele-Neurology Routine Comment: Left basal gang subacute vs old infarct Consulting Provider: Tom Cruz Attending Provider on DC: Clifford Greenwood MD Discharging Provider: Clifford Greenwood MD DS: Diagnosis Problem List Completed Was Problem List Reviewed/Reconciled?: Yes Hospital Course Hospital Course Hospital course: The patient is a 63-year-old male with a past medical history of hypertension, hyperlipidemia, type II DM, CKD stage IV who presented to the ED on 08/06/2024 with altered mental status. Per patient's family at bedside, the patient was living alone and unreachable and when they went to his house he was found slightly confused with slurred speech and difficulty forming sentences and unsteadiness when he walks. In the ED teleneuro was consulted recommended to admit the patient for further workup of acute CVA. Head CT showed nonhemorrhagic age-indeterminate infarct of the left basal ganglia. A follow-up MRI was done which showed large acute infarct of the left basal ganglia/caudate nucleus. Neurology was consulted and the patient was started on aspirin, Plavix and atorvastatin. Nephrology was also consulted for the patient and although the patient is not on dialysis he does have a dialysis cath. Today, the patient is clinically and hemodynamically stable deficits have improved and the patient's mentation back to baseline. Physical therapy had seen the patient and recommended SNF but family preferred to go home with home health. He is medically cleared for discharge. He is recommended to follow-up with his primary care provider within 1 week of discharge as well as stone gang sawyer Dr. Breen within 2 weeks of discharge and neurologist. He will continue to be on aspirin, Plavix and statin until seen by neurologist. 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 If you do not have a PCP onto the [facility] at [address] [place] [address], [address]. call [phone] for an appointment Follow-up with stone gang sawyer Dr. Breen within 2 weeks of discharge Follow-up with neurologist Dr. Cruz within 2 weeks of discharge. Continue aspirin 81 mg daily Continue Plavix 75 mg and atorvastatin 40 mg daily We added losartan 25 mg daily for control of blood pressure Case was discussed with Dr Nichole PGY-2 and attending physician, Dr Tor Greenwood MD PGY-1 Disclaimer: This note was dictated by speech recognition. Minor errors in woodwind reeds cutter may be present due to voice recognition software. Status at Discharge Overall status at discharge: patient is progressing back to baseline Time Spent with Patient Time attestation: Total time spent providing and/or coordinating discharge services: Time spent: Greater than 30 minutes Home Health Home Health Referral Orders: 08/08/24 14:42 Home Health Referral Routine Reason For Exam: Home PT Home-Bound The patient must either because of illness or injury, need the aid of supportive devices such as crutches, canes, wheelchairs, and walkers; the use of special transportation; or the assistance of another person in order to leave their place of residence; OR have a condition such that leaving his or her home is medically contraindicated. In addition, the patient also meets the following criteria: patient is normally unable to leave the home and leaving home requires considerable taxing effort. Addendum to Home Health Certification Practitioner's Certification: I certify that the patient has been under my care in the hospital and the care of attending physician (see below). We had a [id number]-[id number] encounter on (see date below). My clinical findings indicate that the patient is home bound per the above criteria and the Home Health Services noted in these orders are medically necessary. The primary reason for the [id number]-[id number] encounter is related to the fact that the patient requires home health services. Date Certifying Uood-cu-Eclb Physician Encounter: 08/06/24 Physician's Name who will Assume Oversight for HH Services: Physician No Primary/Family END TOUCHING MACHINE OPERATOR - Community Resources: Yes PT to Evaluate: Yes PT to evaluate and provide a treatmnet plan to increase patient's mobility and strength. Wound Care: No IV Therapy: No RN Safety Evaluation: Yes RN to evaluate and create a plan of care that will produce positive outcomes. Palliative Treatment: No Palliative treatment and evaluate the need for hospice. Home Health Aide - Personal Care: Yes Home Health Aide to assist with any ADL's. Exam Vital Signs Temp Pulse Resp BP Pulse Ox O2 Del Method 98.1 F 69 17 149/76 H 96 Room Air 08/08/24 11:36 08/08/24 13:29 08/08/24 13:29 08/08/24 13:29 08/08/24 13:29 08/08/24 13:29 Narrative Exam GENERAL: AAOX3 NEURO: Strength preserved in extremities, speech improving, some unsteadiness in gait HEENT: Moist mucosa. Eyes open, symmetrical, & clear CARDIO: No chest pain on palpation. Heart RRR, no obvious murmurs PULM: No noted coughing/dyspnea. Lungs CTA B/L GI: Abdomen soft, nondistended, no pain on palpation. BSx4 URO/RESCUE BOAT OPERATOR:: No further abnormalities noted. SKIN/MSK/EXT: No wounds/rashes/edema/amputations, no pain on palpation. Pedal pulses present B/L Discharge Plan Plan Patient Disposition: Home w/HOME HEALTH Patient condition on transfer: Stable Prescriptions/Referrals Prescriptions/Med Rec: New clopidogrel 75 mg Tablet 75 mg PO QDAY Qty: 60 0RF aspirin [Ecotrin Low Strength] 81 mg Tablet,Delayed Release (Dr/Ec) 81 mg PO QDAY Qty: 60 0RF losartan 25 mg tablet 25 mg PO QDAY 60 Days Qty: 60 0RF Continued atorvastatin 40 mg tablet 40 mg PO QPM hydralazine 25 mg tablet 25 mg PO BID furosemide 20 mg tablet 20 mg PO BID glipizide 5 mg tablet 5 mg PO BID Discontinued acetaminophen-codeine 300-30 mg tablet 1 tab PO Q6H Referrals: No Primary/Family,Physician [Primary Care Provider] - Tom Cruz MD [Physician] - Panfilo Breen MD [Physician] - Patient/Caregiver Discharge Instructions Other Discharge Activity Instructions:: Follow-up with your PCP within 1 week of discharge. If you do not have a PCP onto the [facility] at [address] [place] [address], [address]. call [phone] for an appointment Follow-up with stone gang sawyer Dr. Breen within 2 weeks of discharge Follow-up with neurologist Dr. Cruz within 2 weeks of discharge. Continue aspirin 81 mg daily Continue Plavix 75 mg and atorvastatin 40 mg daily We added losartan 25 mg daily for control of blood pressure Education Materials: Discharge Instructions for Stroke Print Language: Icelandic Stand Alone Forms: Grace Award Info., Patient Portal Info Letter Discharge Order Discharge Orders: Discharge (Routine); Ordered 08/08/24 Ordered By: Clifford Greenwood Quality Discharge Quality Measures stroke Statin ordered >75 y/o:moderate or high intensity dose on DC: yes Statin ordered <75 y/o: high intensity dose on DC: yes Statin not ordered due to:: not indicated Anticoagulation ordered for A-fib or flutter (current or hx): not indicated Antithrombotic ordered on DC: ordered MD Attestestation MD Attestation I reviewed labs, imaging, EKG, home medications and prior available records. Face to face evaluation was performed by me. I have personally examined the patient and discussed assessment and plan with the IM team. I reviewed the resident note and agree with the plan with exceptions as below. Acute encephalopathy: Likely in the setting of CVA. MRI showed left basal ganglia infarct. Continue aspirin, Plavix, and atorvastatin. Ordered home health CKD stage IV: Creatinine is close to baseline. Monitor kidney function. Avoid nephrotoxins. Renally dosed medications. Uncontrolled hypertension: Continue hydralazine and losartan. Monitor BP as outpatient Time spent is 40 minutes. More than 50% of the time was spent on patient education and coordination of care.
--- NOTE | 2024-08-09 09:27 | PC.CC ---
[facility] accepted the pt. Pending auth from [place] and start of care date. DC orders and dc summary sent to [facility].
--- NOTE | 2024-08-09 09:30 | PC.CC ---
Initial HH referral was sent by Dane on 08/08/24. [facility] accepted the pt. Booked [facility]. Pending auth from [place] and start of care date. DC orders and dc summary sent to [facility].
== END 2024-08-08 16:13 | disposition home health service (06) | DRG 45 ==
LOC: SERX 08-06 00:03 → SERHOLD 08-06 01:04 → S2NX 08-06 05:11 → S3NX 08-08 05:12
PROVIDERS: Internal Medicine; Nurse Practitioner Primary Care; Student in an Organized Health Care Education/Training Program; Admitting Provider Student in an Organized Health Care Education/Training Program; Emergency Provider Emergency Medicine; Visit Provider Student in an Organized Health Care Education/Training Program
DX: I63.89 Other cerebral infarction (principal); N18.4 Chronic kidney disease, stage 4 (severe); E11.22 Type 2 diabetes mellitus with diabetic chronic kidney disease; I12.9 Hypertensive chronic kidney disease with stage 1 through stage 4 chronic kidney disease, or unspecified chronic kidney disease; E78.5 Hyperlipidemia, unspecified; W18.30XA Fall on same level, unspecified, initial encounter; N17.9 Acute kidney failure, unspecified; R47.1 Dysarthria and anarthria; G93.49 Other encephalopathy; Z60.2 Problems related to living alone; M17.12 Unilateral primary osteoarthritis, left knee; G89.29 Other chronic pain; D72.829 Elevated white blood cell count, unspecified; D63.1 Anemia in chronic kidney disease; E78.00 Pure hypercholesterolemia, unspecified; R53.1 Weakness; K80.20 Calculus of gallbladder without cholecystitis without obstruction; Z79.84 Long term (current) use of oral hypoglycemic drugs; Z79.899 Other long term (current) drug therapy; Z11.52 Encounter for screening for COVID-19; Z79.82 Long term (current) use of aspirin; Z87.891 Personal history of nicotine dependence
CPT/HCPCS: 36415; 70450; 70544; 71045; 71250; 73562; 74176; 76705; 80053; 80061; 81001; 82140; 82550; 82570; 82728; 83036; 83540; 83550; 83605; 83735; 84100; 84145; 84156; 84439; 84443; 84484; 85025; 85610; 85730; 87040; 87086; 87400; 87811; 92610; 93306; 97162; J0360; J1815; J2470; J3490; J8499; A9270; J1920